=== PATIENT | male | born 1965 | race Caucasian/White ===

== ENCOUNTER 2017-01-03 13:55 | Emergency (ER) | payer OTHER ==
[2017-01-03] MEDS ORDERED: Ketorolac Tromethamine 30 MG/ML VIAL ONE (16:24)
[2017-01-03] MEDS ORDERED: methylPREDNISolone Sod Succ/PF 125 MG/2 ML VIAL ONE ×2 (16:24→16:28)
[2017-01-03] MEDS ORDERED: diphenhydrAMINE HCl 50 MG/ML 1 ML VIAL ONE (16:24)
[2017-01-03] MEDS ORDERED: Metoclopramide HCl 10 MG/2 ML VIAL ONE (16:24)
[2017-01-03] MEDS ORDERED: Water For Inject, Bacteriostat 30 ML ONE (16:29)
--- NOTE | 2017-01-03 19:08 | CT ---
CT BRAIN WITHOUT CONTRAST 01/03/17 HISTORY: Headache. FINDINGS: Comparison is made with exam of 08/27/15. No evidence of acute infarct, hemorrhage, midline shift or abnormal extra-axial fluid collections ar e seen. The ventricular size is appropriate and the basilar cisterns patent. The bony calvarium is i ntact. The visualized paranasal sinuses and mastoid air cells are well aerated. IMPRESSION: No CT evidence of acute intracranial process. POS: [facility]
[2017-01-03] MEDS ORDERED: Meclizine HCl 25 MG TAB ONE (19:34)
== END 2017-01-03 20:28 | disposition home or self-care (01) ==
LOC: ERS 13:55
DX: G43.909 Migraine, unspecified, not intractable, without status migrainosus (principal); I10 Essential (primary) hypertension; F43.10 Post-traumatic stress disorder, unspecified; F17.210 Nicotine dependence, cigarettes, uncomplicated; E03.9 Hypothyroidism, unspecified
CPT/HCPCS: 70450; 96361; 96365; 96375; 96376; J1200; J1885; J2270; J2765; J2930

== ENCOUNTER 2017-04-03 00:11 | Emergency (ER) | payer OTHER ==
[2017-04-03] MEDS ORDERED: Acetaminophen 500 MG TAB ONE (01:06)
[2017-04-03] MEDS ORDERED: Morphine 4 MG/ML VIAL ONE ×2 (01:27→02:23)
[2017-04-03 01:57] LABS: #Basophils 0.1 thou/uL (0.0-0.2); #Eosinphils 0.3 thou/uL (0.0-0.7); #Lymphocytes 2.7 thou/uL (1.20-3.40); #Neutrophils 4.8 thou/uL (1.40-6.50); %Lymphocytes 30.5 % (21.0-51.0); %Monocytes 11.5 % (0.0-10.0); %Neutrophils 54.1 % (42.0-75.0); Mean Corpuscular HGB CONC 33.7 g/dL (32.0-36.0); Mean Corpuscular Hemoglobin 31.7 pg (27.0-31.0); Mean Corpuscular Volume 94.1 fl (80.0-94.0); Mean Platelet Volume 6.9 fL (7.4-10.4); Platelet Count 291 thou/uL (130-400); RBC Distribution Width 11.7 % (11.5-14.5); Red Blood Cell (RBC) Count 5.06 mill/uL (4.70-6.10); White Blood Cell (WBC) Count 8.8 thou/uL (4.8-10.8)
[2017-04-03 02:17] LABS: ALT (SGPT) 28 U/L (8-55); AST (SGOT) 28 U/L (5-34); Albumin 4.6 g/dL (3.5-5.0); Alkaline Phosphatase 49 U/L (40-150); Anion Gap 15 mmol/L (10-20); BUN (Urea Nitrogen) 21 mg/dL (8.4-25.7); Bilirubin, Total 0.5 mg/dL (0.2-1.2); Calc. Creatinine Clearance 0 mL/min (70-130); Calcium 10.7 mg/dL (7.8-10.44); Carbon Dioxide 22 mmol/L (22-29); Chloride 104 mmol/L (98-107); Estimated GFR-MDRD 59; Globulin 2.9 g/dL (2.4-3.5); Glucose 88 mg/dL (70-105); Protein, Total 7.5 g/dL (6.0-8.3); Sodium 137 mmol/L (136-145)
[2017-04-03 02:21] LABS: Troponin I 0.012 ng/mL (< 0.028)
--- NOTE | 2017-04-03 08:06 | RAD ---
PORTABLE CHEST 1 VIEW: DATE: 04/03/17. TIME: 1:53 a.m. HISTORY: Cough, fever, chills, vomiting, diarrhea. FINDINGS: Comparison is made with the exam of 08/27/15. The heart size is normal. The lungs are expanded without focal areas of consolidation, pneumothorax, or pleural effusions. IMPRESSION: No radiographic evidence of acute cardiopulmonary process. POS: [facility]
== END 2017-04-03 03:07 | disposition home or self-care (01) ==
LOC: ERS 00:11
DX: J18.9 Pneumonia, unspecified organism (principal); E03.9 Hypothyroidism, unspecified; I10 Essential (primary) hypertension; F43.10 Post-traumatic stress disorder, unspecified; F17.210 Nicotine dependence, cigarettes, uncomplicated; Z71.6 Tobacco abuse counseling; Z79.899 Other long term (current) drug therapy
CPT/HCPCS: 36415; 71045; 80053; 82553; 84484; 85025; 93005; 96361; 96374; 96376; 99406; J2270

== ENCOUNTER 2017-04-04 17:03 | Emergency (ER) | payer OTHER ==
--- NOTE | 2017-04-04 17:41 | RAD ---
CHEST ONE VIEW 04/04/17 HISTORY: Dyspnea. COMPARISON: Chest one view 04/03/17. FINDINGS: Lungs are clear. No pneumothorax or effusion. The cardiac silhouette and mediastinal contours are wit hin normal limits. IMPRESSION: No acute intrathoracic abnormality. POS: [facility]
[2017-04-04 18:22] LABS: #Basophils 0.1 thou/uL (0.0-0.2); #Eosinphils 0.2 thou/uL (0.0-0.7); #Lymphocytes 2.2 thou/uL (1.20-3.40); #Monocytes 0.5 thou/uL (0.11-0.59); #Neutrophils 3.9 thou/uL (1.40-6.50); %Basophils 1.1 % (0.0-1.0); %Eosinophils 2.9 % (0.0-10.0); %Monocytes 7.1 % (0.0-10.0); Hemoglobin 16.5 g/dL (14.0-18.0); Mean Corpuscular HGB CONC 34.4 g/dL (32.0-36.0); Mean Corpuscular Hemoglobin 32.2 pg (27.0-31.0); Mean Corpuscular Volume 93.6 fl (80.0-94.0); Platelet Count 285 thou/uL (130-400); RBC Distribution Width 11.7 % (11.5-14.5); Red Blood Cell (RBC) Count 5.12 mill/uL (4.70-6.10); White Blood Cell (WBC) Count 6.9 thou/uL (4.8-10.8)
[2017-04-04 18:49] LABS: ALT (SGPT) 26 U/L (8-55); AST (SGOT) 24 U/L (5-34); Albumin 4.5 g/dL (3.5-5.0); Alkaline Phosphatase 48 U/L (40-150); Anion Gap 13 mmol/L (10-20); BUN (Urea Nitrogen) 18 mg/dL (8.4-25.7); Bilirubin, Total 0.5 mg/dL (0.2-1.2); Calc. Creatinine Clearance 0 mL/min (70-130); Calcium 9.5 mg/dL (7.8-10.44); Carbon Dioxide 21 mmol/L (22-29); Chloride 103 mmol/L (98-107); Estimated GFR-MDRD 55; Globulin 3.2 g/dL (2.4-3.5); Glucose 99 mg/dL (70-105); Protein, Total 7.7 g/dL (6.0-8.3); Sodium 133 mmol/L (136-145)
[2017-04-04] MEDS ORDERED: Ketorolac Tromethamine 60 MG/2 ML VIAL ONE (20:46)
[2017-04-04] MEDS ORDERED: Dexamethasone 10 MG/ML VIAL ONE (20:46)
[2017-04-04] MEDS ORDERED: Albuterol Sulfate 2.5 mg/3 ml Neb ONE (20:50)
[2017-04-04] MEDS ORDERED: Albuterol Sulfate 2.5 mg/0.5 ml Neb ONE (20:50)
== END 2017-04-04 22:33 | disposition home or self-care (01) ==
LOC: ERS 17:03
DX: J40 Bronchitis, not specified as acute or chronic (principal); B34.9 Viral infection, unspecified; E03.9 Hypothyroidism, unspecified; I10 Essential (primary) hypertension; F43.10 Post-traumatic stress disorder, unspecified; F17.200 Nicotine dependence, unspecified, uncomplicated; Z79.899 Other long term (current) drug therapy; Z79.1 Long term (current) use of non-steroidal anti-inflammatories (NSAID)
CPT/HCPCS: 36415; 71045; 80053; 85025; 94640; 96372; 99406; J1100; J1885; J7611; J7620

== ENCOUNTER 2017-04-23 15:59 | Inpatient (IN) | payer OTHER, SELFPAY ==
[~2017-04-23 15:59] MED LIST: ISOVUE-370 76%-LOCM 1 ML ONE
[2017-04-23 16:22] LABS: #Basophils 0.1 thou/uL (0.0-0.2); #Eosinphils 0.3 thou/uL (0.0-0.7); #Lymphocytes 2.3 thou/uL (1.20-3.40); #Monocytes 0.7 thou/uL (0.11-0.59); #Neutrophils 5.4 thou/uL (1.40-6.50); %Basophils 0.7 % (0.0-1.0); %Lymphocytes 26.1 % (21.0-51.0); %Monocytes 7.7 % (0.0-10.0); %Neutrophils 62.5 % (42.0-75.0); Hemoglobin 15.3 g/dL (14.0-18.0); Mean Corpuscular HGB CONC 35.2 g/dL (32.0-36.0); Mean Corpuscular Hemoglobin 32.6 pg (27.0-31.0); Mean Corpuscular Volume 92.5 fl (80.0-94.0); Mean Platelet Volume 7.3 fL (7.4-10.4); Platelet Count 269 thou/uL (130-400); RBC Distribution Width 11.7 % (11.5-14.5); Red Blood Cell (RBC) Count 4.71 mill/uL (4.70-6.10); White Blood Cell (WBC) Count 8.6 thou/uL (4.8-10.8)
--- NOTE | 2017-04-23 16:23 | RAD ---
CHEST ONE VIEW 04/23/17 HISTORY: Dyspnea. Chest pain. COMPARISON: 04/04/17. FINDINGS: The cardiac silhouette and pulmonary vasculature are unremarkable. Mediastinum is midline. There is n o confluent air space consolidation or evidence of pneumothorax. Writing pen over the right upper [address] is presumed to be extrinsic artifact. Small dystrophic calcification/overlying artifact projects o riki the left axilla. IMPRESSION: No active cardiopulmonary abnormalities are demonstrated. POS: [facility]
[2017-04-23 16:58] LABS: ALT (SGPT) 28 U/L (8-55); AST (SGOT) 27 U/L (5-34); Albumin 4.7 g/dL (3.5-5.0); Alkaline Phosphatase 45 U/L (40-150); Anion Gap 14 mmol/L (10-20); BUN (Urea Nitrogen) 18 mg/dL (8.4-25.7); Bilirubin, Total 0.5 mg/dL (0.2-1.2); CK (CPK) 484 U/L (30-200); Calc. Creatinine Clearance 0 mL/min (70-130); Calcium 9.5 mg/dL (7.8-10.44); Carbon Dioxide 22 mmol/L (22-29); Chloride 103 mmol/L (98-107); Estimated GFR-MDRD 58; Globulin 2.9 g/dL (2.4-3.5); Glucose 88 mg/dL (70-105); Lipase 45 U/L (8-78); Potassium 3.9 mmol/L (3.5-5.1); Protein, Total 7.6 g/dL (6.0-8.3); Sodium 135 mmol/L (136-145)
[2017-04-23 17:16] LABS: CKMB 13.9 ng/mL (0-6.6); Troponin I 0.655 ng/mL (< 0.028)
[2017-04-23] MEDS ORDERED: Morphine 4 MG/ML Carpuject ONE ×3 (17:32→20:27)
[2017-04-23] MEDS ORDERED: Nitroglycerin 2% Ointment 1 INCH/1 GM Packet ONE (17:33)
[2017-04-23] MEDS ORDERED: Ondansetron HCl/PF 4 MG/2 ML Vial ONE (17:33)
[2017-04-23] MEDS ORDERED: Nitroglycerin 0.4 MG TAB (25 Tab Bottle) SL PRN (19:38)
[2017-04-23] MEDS ORDERED: Acetaminophen 325 MG TAB PO PRN (19:38)
--- NOTE | 2017-04-23 20:13 | HP ---
PRIMARY CARE PHYSICIAN: Dr. Geno Paz. CHIEF COMPLAINT: Chest pain. HISTORY OF PRESENT ILLNESS: Mr. Ritter is a pleasant 52-year-old gentleman who was seen at [facility] on 04/23/2017. He reports that he was working around 1:00 p.m. when he developed retrosternal chest pain. It radiat ed initially to his right, subsequently to his left, then to his right again. He describes it as sha rp. He reports feeling pain between his shoulder blades. He describes it as 10/10 at its worst, acc ompanied by shortness of breath, not accompanied by diaphoresis, not accompanied by nausea. He repor ts that it lasted several hours. He received some medications with improvement of the pain, now it i s 7/10. He denies any fevers or chills. He denies any abdominal pain. He denies any recent travel. REVIEW OF SYSTEMS: The following complete review of systems was negative, unless otherwise mentioned in the HPI or below: Constitutional: Weight loss or gain, ability to conduct usual activities. Skin: Rash, itching. Eyes: Double vision, pain. ENT/Mouth: Nose bleeding, neck stiffness, pain, tenderness. Cardiovascular: Palpitations, dyspnea on exertion, orthopnea. Respiratory: Shortness of breath, wheezing, cough, hemoptysis, fever or night sweats. Gastrointestinal: Poor appetite, abdominal pain, heartburn, nausea, vomiting, constipation, or diarrhea. Genitourinary: Urgency, frequency, dysuria, nocturia. Musculoskeletal: Pain, swelling. Neurologic/Psychiatric: Anxiety, depression. Allergy/Immunologic: Skin rash, bleeding tendency. PAST MEDICAL HISTORY: Significant for hypothyroidism, hepatitis C, hypertension, and chronic back pa in. PAST SURGICAL HISTORY: Significant for appendectomy, thyroidectomy, facial reconstruction. PSYCHIATRIC HISTORY: Significant for post-traumatic stress disorder. SOCIAL HISTORY: The patient denies recreational drug use. He uses tobacco, a pack of cigarettes las ting a week. He drinks alcohol every week. FAMILY HISTORY: Significant for heart disease in his father. ALLERGIES: No known drug allergies. CURRENT MEDICATIONS: Include hydrochlorothiazide 12.5 mg daily; lisinopril 40 mg daily; Synthroid 17 5 mcg daily; ibuprofen p.r.n.; azithromycin, it is unclear how long he is taking or if he still takin g it; Zoloft 100 mg daily; Ventolin p.r.n.; Tessalon Perles 100 mg 3 times a day; Ultram p.r.n. PHYSICAL EXAMINATION: GENERAL: Mr. Ritter is awake and alert, not in acute distress. VITAL SIGNS: He is afebrile. Blood pressure is 126/75, pulse is 70, he is breathing at rate of 18, and saturating 97% on room air. EYES: No scleral icterus. No conjunctival pallor. ENT: Moist mucosal membranes. No oropharyngeal erythema or exudates. NECK: Supple, nontender, normal range of movement, trachea is midline. RESPIRATORY: Accessory muscles of breathing are not active. Chest wall movements are symmetric bila terally. LUNGS: Clear to auscultation without wheeze, rhonchi or crepitations. CARDIOVASCULAR: S1 and S2 are heard, regular. LUNGS: Peripheral pulses palpable. No carotid bruits. No pericardial rub. ABDOMEN: Soft, distended, nontender, bowel sounds heard, no hepatomegaly, no splenomegaly. NEUROLOGIC: Cranial nerves II-XII are intact. Deep tendon reflexes are 2+. MUSCULOSKELETAL: Power is 5/5 in all 4 extremities. SKIN: No rashes or subcutaneous nodules. LYMPHATIC: No cervical lymphadenopathy. PSYCHIATRIC: Normal mood, normal affect, patient is oriented to person, place, and time. LABORATORY DATA: Mr. Ritter's labs and investigations were reviewed. I reviewed his electrocardiog art, which shows sinus bradycardia, no ST changes to suggest an acute coronary syndrome. I also revi ewed his chest x-ray, which does not show any pulmonary infiltrates. Laboratory investigation show a n unremarkable CBC, hyponatremia with sodium of 135, elevated CK of 484, normal liver profile, normal creatinine, normal lipase and troponin I is elevated at 0.655. ASSESSMENT AND PLAN: Mr. Ritter is a pleasant 52-year-old gentleman who was seen at [facility] on 04/23/2017. His problem list includes: 1. Chest pain: His presentation is concerning for non-ST elevation myocardial infarction. However, he does describe very sharp pain that is retrosternal and radiating to the back. We will obtain a C T angiogram to rule out aortic dissection. Once he is cleared from that point of view, we will start him on Lovenox and monitor on telemetry. Cardiology Service is also being contacted by the emergenc y room physician. 2. Hyponatremia: Mild, we will recheck. 3. Hypertension: Monitor vital signs, titrate antihypertensives as needed. 4. Tobacco abuse: The patient has been counseled regarding tobacco cessation. We will start him on nicotine replacement therapy. 5. Hypothyroidism: Continue Synthroid. 6. Posttraumatic stress disorder. Continue home medications. Many thanks for allowing me to participate in your patient's care. Please feel free to contact me wi th any questions or concerns. LEVEL OF RISK: High. LEVEL OF COMPLEXITY: High.
[2017-04-23 20:16] LABS: CKMB 33.9 ng/mL (0-6.6); Troponin I 2.415 ng/mL (< 0.028)
[2017-04-23] MEDS ORDERED: Enoxaparin Sodium 30 MG/0.3 ML SYRINGE ONE (20:55)
[2017-04-23] MEDS ORDERED: Enoxaparin Sodium 80 MG/0.8 ML SYRINGE ONE (20:55)
--- NOTE | 2017-04-23 21:53 | CT ---
CTA CHEST CTA ABDOMEN AND PELVIS 3D VOLUME RENDERING PERFORMED 04/23/17 CLINICAL HISTORY: Pain, clinical concern for dissection. Chest pain. FINDINGS: The thoracoabdominal aorta is nonaneurysmal. There is scattered calcified and noncalcified plaque. No intimal flap present to confirm aortic dissection. The caliber of the pulmonary arteries is appropri ate. No acute pathology of the solid abdominal organs identified. Mild volume loss is seen within the subpleura of each lung. No effusion or pneumothorax. Imaged osseous structures are nonacute in appea danette. Reference is made to CT aortogram 08/16/15. IMPRESSION: No acute aortic dissection. POS: [facility]
[2017-04-23] MEDS ORDERED: Morphine 2 MG/ML SYRINGE ONE (23:07)
[2017-04-23 23:11] LABS: Troponin I 5.023 ng/mL (< 0.028)
[2017-04-24] MEDS: Nicotine 14 MG PATCH TD SCH ×2 (00:08→20:57)
[2017-04-24] MEDS: Morphine 10 MG/ML CARPUJECT SLOW IVP PRN ×3 (00:30→18:43)
[2017-04-24 01:09] VITALS: BMI 36.6
[2017-04-24 02:12] LABS: Troponin I 7.186 ng/mL (< 0.028)
[2017-04-24] MEDS ORDERED: Sodium Chloride 0.9% 500 ML IVPB SCH (04:00)
[2017-04-24] MEDS: Nitroglycerin 2% Ointment 1 INCH/1 GM Packet TOP SCH ×3 (05:47→22:05)
[2017-04-24 06:54] LABS: Anion Gap 10 mmol/L (10-20); BUN (Urea Nitrogen) 16 mg/dL (8.4-25.7); Calc. Creatinine Clearance 118 mL/min (70-130); Calcium 8.7 mg/dL (7.8-10.44); Carbon Dioxide 26 mmol/L (22-29); Chloride 105 mmol/L (98-107); Estimated GFR-MDRD 67; Glucose 86 mg/dL (70-105); Potassium 3.8 mmol/L (3.5-5.1); Sodium 137 mmol/L (136-145)
[2017-04-24 07:43] LABS: #Eosinphils 0.3 thou/uL (0.0-0.7); #Lymphocytes 3.2 thou/uL (1.20-3.40); #Monocytes 0.7 thou/uL (0.11-0.59); #Neutrophils 4.5 thou/uL (1.40-6.50); %Basophils 0.3 % (0.0-1.0); %Eosinophils 3.5 % (0.0-10.0); %Lymphocytes 36.8 % (21.0-51.0); %Monocytes 8.1 % (0.0-10.0); %Neutrophils 51.4 % (42.0-75.0); Hemoglobin 14.7 g/dL (14.0-18.0); Mean Corpuscular HGB CONC 33.9 g/dL (32.0-36.0); Mean Corpuscular Hemoglobin 31.7 pg (27.0-31.0); Mean Corpuscular Volume 93.4 fl (80.0-94.0); Mean Platelet Volume 7.5 fL (7.4-10.4); Platelet Count 234 thou/uL (130-400); RBC Distribution Width 11.7 % (11.5-14.5); Red Blood Cell (RBC) Count 4.65 mill/uL (4.70-6.10); White Blood Cell (WBC) Count 8.7 thou/uL (4.8-10.8)
[2017-04-24] MEDS ORDERED: Nitroglycerin 100MG/250ML BOT 250 ML ONE (08:19)
[2017-04-24] MEDS ORDERED: Adenosine 6 MG/2 ML VIAL ONE (08:19)
[2017-04-24] MEDS ORDERED: Verapamil 5 MG/2 ML VIAL ONE (08:19)
[2017-04-24] MEDS ORDERED: TICAGRELOR 90 MG TABLET ONE (08:19)
[2017-04-24] MEDS ORDERED: Heparin 10,000 UNITS/1 ML VIAL ONE (08:19)
--- NOTE | 2017-04-24 08:21 | CON ---
DATE OF CONSULTATION: 04/24/2017 REASON FOR CONSULTATION: Elevated troponin and chest pain. REFERRING PROVIDER: Dr. Lamb. HISTORY OF PRESENT ILLNESS: Mr. Ritter is a very pleasant 52-year-old gentleman with no previous hi story of underlying coronary disease. He states he began having chest pain yesterday at 1:00. The p ain has been intermittent. He is currently having pain, although not as severe. His CK-MB and tropo nins continue to increase. PAST MEDICAL HISTORY: Hypothyroidism, hepatitis C, hypertension, and chronic low back pain. PAST SURGICAL HISTORY: Appendectomy, thyroidectomy, and facial reconstruction. SOCIAL HISTORY: No current tobacco or alcohol use. ALLERGIES: None. MEDICATIONS: Include hydrochlorothiazide, lisinopril, Tessalon Perles, Ventolin, Zoloft, ibuprofen, Synthroid, and Ultram. REVIEW OF SYSTEMS: Ten-point review of systems is reviewed and as above, otherwise negative. PHYSICAL EXAMINATION: GENERAL: Patient is a pleasant male, who is in no acute distress. The patient appears his stated ag e. VITAL SIGNS: Blood pressure 103/50, pulse 54, and temperature 98. NEUROLOGIC: The patient is alert and oriented times 3 with no focal neurologic deficits. HEENT: Sclerae without icterus. Mouth has moist mucous membranes with normal pallor. NECK: No JVD. Carotid upstroke brisk. No bruits bilaterally. LUNGS: Clear to auscultation with unlabored respirations. BACK: No scoliosis or kyphosis. CARDIAC: Regular rate and rhythm with normal S1 and S2. No S3 or S4 noted. No significant rubs, murmurs, thrills, or gallops noted throughout the precordium. PMI is not displa shakeel. There is no parasternal heave. ABDOMEN: Soft, nontender, nondistended. No peritoneal signs present. No hepatosplenomegaly. No abnormal striae. EXTREMITIES: 2+ femoral and 2+ dorsalis pedis pulses. No cyanosis, clubbing, or edema. SKIN: No gross abnormalities. EKG normal sinus rhythm, cannot completely excluded inferior infarct, age unknown. PERTINENT LABORATORY DATA: Hemoglobin 14.7, peak troponin of 7.18 with a CK-MB of 33. IMPRESSION: 1. Unstable angina. 2. Hypertension. RECOMMENDATIONS: At this point, given continued pain. An elevated CK-MB and troponin, I would recom mend coronary angiography with possible PCI. I discussed the procedure in full detail with Mr. Cordova on. The risks include but are not limited to the following: I discussed the procedure in full detai l with the patient. The risks of the procedure were also discussed. The risks of the procedure incl ude but are not limited to the following: , stroke, SC, need for emergency surgery, loss of savage b, bleeding, and infection, as well as a reaction to the dye causing kidney failure and needing long- term dialysis. I also discussed the risks of PCI to include all of the above including coronary diss ection and perforation in addition to acute stent thrombosis and restenosis. All questions about the procedure were answered. Given the above, the patient agreed to proceed with coronary angiography a nd possible PCI. All questions were answered. Given the above, the patient agreed to proceed with t he above procedure. I also discussed drug-coated versus nondrug coated stent placement. There are n o contraindications and will proceed if needed. Further recommendations pending the above.
[2017-04-24] MEDS ORDERED: Aggrastat 12.5 MG/250 ML 250 ML ONE (08:38)
[2017-04-24] MEDS ORDERED: traMADol HCl 50 MG TAB PO PRN (08:45)
[2017-04-24] MEDS ORDERED: Mag-Al 1200 mg/1200 mg/30 ML UDCUP PO PRN (08:45)
[2017-04-24] MEDS ORDERED: Milk Of Magnesia 30 ML UDCUP PO PRN (08:45)
[2017-04-24] MEDS ORDERED: Aggrastat 12.5 MG/250 ML 250 ML IVPB SCH (08:45)
[2017-04-24] MEDS ORDERED: Morphine 2 MG/ML SYRINGE ONE ×4 (10:32→16:26)
[2017-04-24] MEDS ORDERED: Iopamidol 370 76% 50 ML VIAL FS ONE (11:47)
--- NOTE | 2017-04-24 16:08 | PDOC.PN ---
- Subjective Encounter Start Date: 04/24/17 Encounter Start Time: 16:07 Subjective: seen in PACU.doing well post cath -: no chest pain.reports that hi sbreathing has improved significantly - Objective MAR Reviewed: Yes Vital Signs & Weight: Vital Signs (12 hours) Temp Pulse Resp BP Pulse Ox 04/24/17 07:45 98.0 F 55 L 16 96/62 100 04/24/17 04:28 103/50 L 04/24/17 04:23 98.0 F 54 L 19 103/50 L 99 Result Diagrams: 04/24/17 05:23 04/24/17 05:23 Additional Labs: Laboratory Tests 04/23/17 04/23/17 04/23/17 16:06 16:06 19:29 Creatine Kinase 484 H Troponin I 0.655 H* 2.415 H* 04/23/17 04/24/17 22:37 01:22 Creatine Kinase Troponin I 5.023 H* 7.186 H* Radiology Reviewed by me: Yes Phys Exam - Physical Examination Constitutional: NAD HEENT: PERRLA, moist MMs, sclera anicteric, oral pharynx no lesions Neck: no nodes, no JVD, supple, full ROM Respiratory: no wheezing, no rales, no rhonchi, clear to auscultation bilateral Cardiovascular: RRR, no significant murmur Gastrointestinal: soft, non-tender, no distention, positive bowel sounds Musculoskeletal: no edema, pulses present Neurological: non-focal, normal sensation, moves all 4 limbs Psychiatric: normal affect, A&O x 3 Skin: no rash Dx/Plan (1) NSTEMI (non-ST elevated myocardial infarction) Code(s): I21.4 - NON-ST ELEVATION (NSTEMI) MYOCARDIAL INFARCTION Status: Acute (2) Morbid obesity Code(s): E66.01 - MORBID (SEVERE) OBESITY DUE TO EXCESS CALORIES Status: Chronic (3) Chronic low back pain Code(s): M54.5 - LOW BACK PAIN; G89.29 - OTHER CHRONIC PAIN Status: Chronic Qualifiers: Back pain laterality: bilateral (4) GERD (gastroesophageal reflux disease) Code(s): K21.9 - GASTRO-ESOPHAGEAL REFLUX DISEASE WITHOUT ESOPHAGITIS Status: Chronic Comment: Continue Protonix 40mg po daily (5) Hepatitis C virus Code(s): B19.20 - UNSPECIFIED VIRAL HEPATITIS C WITHOUT HEPATIC COMA Status: Chronic Qualifiers: Viral hepatitis chronicity: carrier Qualified Code(s): B18.2 - Chronic viral hepatitis C Comment: s/p 12 weeks therapy for Hep C with apparent resolution (6) Hypertension Code(s): I10 - ESSENTIAL (PRIMARY) HYPERTENSION Status: Chronic Qualifiers: Hypertension type: essential hypertension Qualified Code(s): I10 - Essential (primary) hypertension Comment: Labile, titrate home BP regimen, likely labile secondary to pain (7) Hypothyroidism Code(s): E03.9 - HYPOTHYROIDISM, UNSPECIFIED Status: Chronic Comment: Continue Levothyroxine 175 mcg daily - Plan plan discussed w/ family, out of bed/ambulate, DVT proph w/SCDs S/P RCA LUIS.cont ASA,plavix and statin -: restart FER-I,BB if Bp permits.cardiology following -: hemodynamically stable. -: am labs -: follow ECHO results. tobacco cessation counselling * . Review of Systems - Review of Systems Constitutional: negative: fever, chills, sweats, weakness, malaise, other Respiratory: negative: Cough, Dry, Shortness of Breath, Hemoptysis, SOB with Excertion, Pleuritic Pain, Sputum, Wheezing Cardiovascular: negative: chest pain, palpitations, orthopnea, paroxysmal nocturnal dyspnea, edema, light headedness, other Gastrointestinal: negative: Nausea, Vomiting, Abdominal Pain, Diarrhea, Constipation, Melena, Hematochezia, Other Genitourinary: negative: Dysuria, Frequency, Incontinence, Hematuria, Retention , Other Musculoskeletal: negative: Neck Pain, Shoulder Pain, Arm Pain, Back Pain, Hand Pain, Leg Pain, Foot Pain, Other Neurological: negative: Weakness, Numbness, Incoordination, Change in Speech, Confusion, Seizures, Other - Medications/Allergies Allergies/Adverse Reactions: Allergies Allergy/AdvReac Type Severity Reaction Status Date / Time No Known Drug Allergies Allergy Verified 08/28/15 03:24 Medications: Current Medications Acetaminophen (Tylenol) 650 mg PO Q4H PRN PRN Reason: Headache/Fever or Pain Acetaminophen/Codeine Phosphate (Tylenol #3) 1 tab PO Q4H PRN PRN Reason: Mild Pain (1-3) Al Hydroxide/Mg Hydroxide (Maalox) 30 ml PO Q3H PRN PRN Reason: Indigestion Aspirin (Aspirin) 325 mg PO DAILY [facility] Atorvastatin Calcium (Lipitor) 40 mg PO HS [facility] Clopidogrel Bisulfate (Plavix) 75 mg PO DAILY [facility] Tirofiban/Sodium Chloride (Aggrastat 12.5 Mg/250 Ml) 250 mls @ 0 mls/hr IVPB INF [facility]; As Directed PRN Reason: Protocol Sodium Chloride (Normal Saline 0.9%) 1,000 mls @ 100 mls/hr IV .Q10H [facility] Stop: 04/27/17 16:44 Magnesium Hydroxide (Milk Of Magnesium) 30 ml PO Q12H PRN PRN Reason: Constipation Morphine Sulfate (Morphine) 2 mg SLOW IVP Q5MIN PRN PRN Reason: Chest Pain Last Admin: 04/24/17 01:02 Dose: 2 mg Nicotine (Nicoderm Patch) 14 mg TD Q24HR [facility] Last Admin: 04/24/17 00:08 Dose: Not Given Nitroglycerin (Nitrostat) 0.4 mg SL Q5MIN PRN PRN Reason: Chest Pain Last Admin: 04/24/17 02:58 Dose: 0.4 mg Nitroglycerin (Nitro-Bid 2% Ointment) 0.5 inch TOP Q8HR [facility] Last Admin: 04/24/17 05:47 Dose: 0.5 inch Sodium Chloride (Flush - Normal Saline) 10 ml IVF Q12HR [facility] Sodium Chloride (Flush - Normal Saline) 10 ml IVF PRN PRN PRN Reason: Saline Flush Tramadol HCl (Ultram) 50 mg PO Q6H PRN PRN Reason: Pain
[2017-04-24] MEDS: Clopidogrel Bisulfate 75 MG TAB PO SCH (17:42)
[2017-04-24] MEDS: Aspirin 325 MG TAB PO SCH (17:42)
[2017-04-24] MEDS: Sodium Chloride 0.9% 1,000 ML IV SCH ×2 (18:59→19:00)
[2017-04-24] MEDS: Acetaminophen/Codeine 30-300mg Tablet PO PRN (20:18)
[2017-04-24] MEDS: Atorvastatin Calcium 40 MG TAB PO SCH (20:56)
[2017-04-24] MEDS: traZODone HCl 50 MG TAB PO SCH (20:56)
[2017-04-25 05:27] LABS: #Eosinphils 0.2 thou/uL (0.0-0.7); #Lymphocytes 1.4 thou/uL (1.20-3.40); #Monocytes 0.6 thou/uL (0.11-0.59); #Neutrophils 4.5 thou/uL (1.40-6.50); %Basophils 0.7 % (0.0-1.0); %Eosinophils 3.2 % (0.0-10.0); %Lymphocytes 20.3 % (21.0-51.0); %Monocytes 8.6 % (0.0-10.0); %Neutrophils 67.2 % (42.0-75.0); Hemoglobin 13.6 g/dL (14.0-18.0); Mean Corpuscular HGB CONC 34.6 g/dL (32.0-36.0); Mean Corpuscular Hemoglobin 32.6 pg (27.0-31.0); Mean Corpuscular Volume 94.3 fl (80.0-94.0); Mean Platelet Volume 7.3 fL (7.4-10.4); Platelet Count 200 thou/uL (130-400); RBC Distribution Width 11.6 % (11.5-14.5); Red Blood Cell (RBC) Count 4.17 mill/uL (4.70-6.10); White Blood Cell (WBC) Count 6.7 thou/uL (4.8-10.8)
[2017-04-25 05:42] LABS: ALT (SGPT) 26 U/L (8-55); AST (SGOT) 41 U/L (5-34); Albumin 3.9 g/dL (3.5-5.0); Alkaline Phosphatase 37 U/L (40-150); Anion Gap 10 mmol/L (10-20); BUN (Urea Nitrogen) 14 mg/dL (8.4-25.7); Bilirubin, Total 0.7 mg/dL (0.2-1.2); Calc. Creatinine Clearance 119 mL/min (70-130); Calcium 8.2 mg/dL (7.8-10.44); Carbon Dioxide 25 mmol/L (22-29); Chloride 109 mmol/L (98-107); Estimated GFR-MDRD 67; Globulin 2.3 g/dL (2.4-3.5); Glucose 103 mg/dL (70-105); Potassium 4.1 mmol/L (3.5-5.1); Protein, Total 6.2 g/dL (6.0-8.3); Sodium 140 mmol/L (136-145)
[2017-04-25] MEDS: Sodium Chloride 0.9% 1,000 ML IV SCH ×2 (06:02→16:40)
[2017-04-25] MEDS: Levothyroxine 175 MCG TAB PO SCH (06:03)
[2017-04-25] MEDS: Nitroglycerin 2% Ointment 1 INCH/1 GM Packet TOP SCH ×3 (06:03→20:34)
[2017-04-25] MEDS: Aspirin 325 MG TAB PO SCH (09:25)
[2017-04-25] MEDS: Clopidogrel Bisulfate 75 MG TAB PO SCH (09:27)
[2017-04-25] MEDS: Acetaminophen/Codeine 30-300mg Tablet PO PRN ×2 (09:38→21:43)
--- NOTE | 2017-04-25 14:21 | CON ---
DATE OF SERVICE: 04/25/2017 SUBJECTIVE: Mr. Ritter is doing well. No chest pain or pressure noted. OBJECTIVE: VITAL SIGNS: Blood pressure 129/79, pulse 60, temperature 97.5. LUNGS: Clear to auscultation. HEART: Regular rate and rhythm. ABDOMEN: Soft, nontender, and nondistended. EXTREMITIES: No edema. IMPRESSION: Unstable angina. RECOMMENDATIONS: Continue Plavix and aspirin. Again, reemphasis the importance. His blood pressure has been in the 120s to 130s. We will hold his FER inhibitor therapy for now and add Norvasc 5 mg q .a.m. We will also add low dose Toprol XL 25 at bedtime. We will transfer to telemetry monitoring. Plan to discharge in a.m.
--- NOTE | 2017-04-25 15:13 | PDOC.PN ---
- Subjective Encounter Start Date: 04/25/17 Encounter Start Time: 15:11 Subjective: feels good. no CP/SOB.no new complaints - Objective MAR Reviewed: Yes Vital Signs & Weight: Vital Signs (12 hours) Temp Pulse Pulse Pulse Resp BP BP 04/25/17 12:00 97.5 F L 60 16 04/25/17 10:12 63 57 L 153/76 H 130/75 04/25/17 08:00 97.0 F L 67 19 04/25/17 07:18 97.0 F L 67 19 04/25/17 04:00 97.8 F 68 16 BP BP Pulse Ox Pulse Ox Pulse Ox 04/25/17 12:00 129/79 97 04/25/17 10:12 99 99 04/25/17 08:00 97 04/25/17 07:18 150/78 H 97 04/25/17 04:00 107/60 95 I&O: 04/24/17 04/25/17 04/26/17 06:59 06:59 06:59 Intake Total 2487 Output Total 400 Balance 2086 Result Diagrams: 04/25/17 04:42 04/25/17 04:42 Additional Labs: Accuchecks 04/25/17 10:34 POC Glucose 90 Phys Exam - Physical Examination Constitutional: NAD HEENT: PERRLA, moist MMs, sclera anicteric, TM's clear, oral pharynx no lesions Neck: no nodes, no JVD, supple, full ROM Respiratory: no wheezing, no rales, no rhonchi, clear to auscultation bilateral Cardiovascular: RRR, no significant murmur, no rub, gallop Gastrointestinal: soft, non-tender, no distention, positive bowel sounds Musculoskeletal: no edema, pulses present Neurological: non-focal, normal sensation, moves all 4 limbs Psychiatric: normal affect, A&O x 3 Skin: no rash Dx/Plan (1) NSTEMI (non-ST elevated myocardial infarction) Code(s): I21.4 - NON-ST ELEVATION (NSTEMI) MYOCARDIAL INFARCTION Status: Acute Comment: s/p RCA stenting (2) Morbid obesity Code(s): E66.01 - MORBID (SEVERE) OBESITY DUE TO EXCESS CALORIES Status: Chronic (3) Chronic low back pain Code(s): M54.5 - LOW BACK PAIN; G89.29 - OTHER CHRONIC PAIN Status: Chronic Qualifiers: Back pain laterality: bilateral (4) GERD (gastroesophageal reflux disease) Code(s): K21.9 - GASTRO-ESOPHAGEAL REFLUX DISEASE WITHOUT ESOPHAGITIS Status: Chronic Comment: Continue Protonix 40mg po daily (5) Hepatitis C virus Code(s): B19.20 - UNSPECIFIED VIRAL HEPATITIS C WITHOUT HEPATIC COMA Status: Chronic Qualifiers: Viral hepatitis chronicity: carrier Qualified Code(s): B18.2 - Chronic viral hepatitis C Comment: s/p 12 weeks therapy for Hep C with apparent resolution (6) Hypertension Code(s): I10 - ESSENTIAL (PRIMARY) HYPERTENSION Status: Chronic Qualifiers: Hypertension type: essential hypertension Qualified Code(s): I10 - Essential (primary) hypertension Comment: Labile, titrate home BP regimen, likely labile secondary to pain (7) Hypothyroidism Code(s): E03.9 - HYPOTHYROIDISM, UNSPECIFIED Status: Chronic Comment: Continue Levothyroxine 175 mcg daily - Plan PT/OT, out of bed/ambulate, DVT proph w/SCDs cont ASA,plavix,statin.restart lisinopril.Add BB if BP stable. -: cardiology following.HD stable. -: Consult marketing project coordinator. -: marie MADDOX in am if OK w cardiology * . Review of Systems - Review of Systems Constitutional: negative: fever, chills, sweats, weakness, malaise, other ENT: negative: Ear Pain, Ear Discharge, Nose Pain, Nose Discharge, Nose Congestion, Mouth Pain, Mouth Swelling, Throat Pain, Throat Swelling, Other Respiratory: negative: Cough, Dry, Shortness of Breath, Hemoptysis, SOB with Excertion, Pleuritic Pain, Sputum, Wheezing Cardiovascular: negative: chest pain, palpitations, orthopnea, paroxysmal nocturnal dyspnea, edema, light headedness, other Gastrointestinal: negative: Nausea, Vomiting, Abdominal Pain, Diarrhea, Constipation, Melena, Hematochezia, Other Genitourinary: negative: Dysuria, Frequency, Incontinence, Hematuria, Retention , Other Musculoskeletal: negative: Neck Pain, Shoulder Pain, Arm Pain, Back Pain, Hand Pain, Leg Pain, Foot Pain, Other Neurological: negative: Weakness, Numbness, Incoordination, Change in Speech, Confusion, Seizures, Other - Medications/Allergies Allergies/Adverse Reactions: Allergies Allergy/AdvReac Type Severity Reaction Status Date / Time No Known Drug Allergies Allergy Verified 08/28/15 03:24 Medications: Current Medications Acetaminophen (Tylenol) 650 mg PO Q4H PRN PRN Reason: Headache/Fever or Pain Acetaminophen/Codeine Phosphate (Tylenol #3) 1 tab PO Q4H PRN PRN Reason: Mild Pain (1-3) Last Admin: 04/25/17 09:38 Dose: 1 tab Al Hydroxide/Mg Hydroxide (Maalox) 30 ml PO Q3H PRN PRN Reason: Indigestion Aspirin (Aspirin Chewable) 81 mg PO DAILY [facility] Last Admin: 04/25/17 09:27 Dose: 81 mg Atorvastatin Calcium (Lipitor) 40 mg PO HS [facility] Last Admin: 04/24/17 20:56 Dose: 40 mg Clopidogrel Bisulfate (Plavix) 75 mg PO DAILY [facility] Last Admin: 04/25/17 09:27 Dose: 75 mg Sodium Chloride (Normal Saline 0.9%) 1,000 mls @ 100 mls/hr IV .Q10H [facility] Stop: 04/27/17 16:44 Last Admin: 04/25/17 06:02 Dose: 1,000 mls Levothyroxine Sodium (Synthroid) 175 mcg PO 0600 [facility] Last Admin: 04/25/17 06:03 Dose: 175 mcg Magnesium Hydroxide (Milk Of Magnesium) 30 ml PO Q12H PRN PRN Reason: Constipation Metoprolol Succinate (Toprol Xl) 25 mg PO DAILY [facility] Morphine Sulfate (Morphine) 2 mg SLOW IVP Q5MIN PRN PRN Reason: Chest Pain Last Admin: 04/24/17 18:43 Dose: 2 mg Nicotine (Nicoderm Patch) 14 mg TD Q24HR [facility] Last Admin: 04/24/17 20:57 Dose: Not Given Nitroglycerin (Nitrostat) 0.4 mg SL Q5MIN PRN PRN Reason: Chest Pain Last Admin: 04/24/17 02:58 Dose: 0.4 mg Nitroglycerin (Nitro-Bid 2% Ointment) 0.5 inch TOP Q8HR [facility] Last Admin: 04/25/17 06:03 Dose: 0.5 inch Sertraline HCl (Zoloft) 200 mg PO DAILY [facility] Last Admin: 04/25/17 09:27 Dose: 200 mg Sodium Chloride (Flush - Normal Saline) 10 ml IVF Q12HR [facility] Last Admin: 04/25/17 09:27 Dose: 10 ml Sodium Chloride (Flush - Normal Saline) 10 ml IVF PRN PRN PRN Reason: Saline Flush Tramadol HCl (Ultram) 50 mg PO Q6H PRN PRN Reason: Pain Trazodone HCl (Desyrel) 100 mg PO HS [facility] Last Admin: 04/24/17 20:56 Dose: 100 mg
[2017-04-25] MEDS ORDERED: Lisinopril 5 MG TAB PO SCH ×2 (15:45→18:45)
[2017-04-25] MEDS ORDERED: Lorazepam 2 MG/ML VIAL SLOW IVP SCH (15:45)
[2017-04-25] MEDS: Atorvastatin Calcium 40 MG TAB PO SCH (20:32)
[2017-04-25] MEDS: Nicotine 14 MG PATCH TD SCH (20:34)
[2017-04-25] MEDS: traZODone HCl 50 MG TAB PO SCH (20:34)
[2017-04-26] MEDS: Levothyroxine 175 MCG TAB PO SCH (05:44)
[2017-04-26] MEDS: Nitroglycerin 2% Ointment 1 INCH/1 GM Packet TOP SCH (05:44)
[2017-04-26] MEDS: Sodium Chloride 0.9% 1,000 ML IV SCH ×2 (05:44→13:03)
[2017-04-26 08:34] VITALS: TEMP 97.6
[2017-04-26] MEDS ORDERED: Lisinopril 5 MG TAB PO SCH (09:00)
[2017-04-26] MEDS ORDERED: Lisinopril 10 MG TAB PO SCH (09:00)
[2017-04-26] MEDS: Clopidogrel Bisulfate 75 MG TAB PO SCH (09:34)
--- NOTE | 2017-04-26 12:19 | PDOC.CTH ---
Cardiology Progress Note - Subjective The pt seen and examined. No overnight events. No cardiac complaints. - Objective Vital Signs Temp Pulse Resp BP BP Pulse Ox 04/26/17 10:45 64 139/61 04/26/17 08:34 97.6 F 59 L 18 96 04/26/17 08:30 97.6 F 59 L 18 112/66 96 04/26/17 05:22 97.7 F 59 L 18 128/56 L 96 Weight 250 lb 12.8 oz 04/25/17 04/26/17 04/27/17 06:59 06:59 06:59 Intake Total 2487 1074 Output Total 400 1000 Balance 2087 74 - Physical Examination General/Neuro: alert & oriented x3 Neck: no JVD present Lungs: CTA Heart: RRR Abdomen: soft Extremities: other: (No edema) - Telemetry Telemetry Rhythm: SR 60s - Labs Result Diagrams: 04/25/17 04:42 04/25/17 04:42 Troponin/CKMB CK-MB (CK-2) 33.9 ng/mL (0-6.6) H* 04/23/17 19:29 Troponin I 7.186 ng/mL (< 0.028) H* 04/24/17 01:22 - Assessment/Plan 1. NSTEMI with s/p PCI to RCA on 04/24/17 - stable with Metoprolol 25mg 1/2tab daily, Lisinopril 5mg daily, Plavix, and ASA 2. HTN - Decreased Metprolol 25mg 1 tab QD to 1/2tab daily and re-start Lisinopril 5mg daily; cont. monitor 3. Hyperlipidemia - on Statin without any SE at this time 4. Hypothyroidism - managed by PCP 5. Hep C - MAR reviewed * From cardiac standpoints, the pt is stable to d/c today; The pt will f/u with Dr Weaver or Institutional Research Director at [facility] within 2-4wks. Review of Systems - Review of Systems Constitutional: reports: no symptoms reported EENTM: reports: no symptoms reported Respiratory: reports: no symptoms reported Cardiac (ROS): reports: no symptoms reported ABD/GI: reports: no symptoms reported : reports: no symptoms reported Musculoskeletal: reports: no symptoms reported
[2017-04-26 12:25] VITALS: BP 134/67
--- NOTE | 2017-04-26 16:12 | DIS ---
DATE OF DISCHARGE: 04/26/2017 DISCHARGE DISPOSITION: Home. FOLLOWUP: 1. Follow up with primary care physician at [facility] in 1 week. 2. Follow up with Cardiology, Dr. Weaver, in 2 weeks. ALLERGIES: No known drug allergies. Outpatient cardiac rehabilitation. Follow up recommended. 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 Weaver. ALLERGIES: No known drug allergies. The patient was seen and examined on the day of discharge. Denies any new complaints. No chest pain , shortness of breath, palpitations reported. DISCHARGE MEDICATIONS: Amlodipine 5 mg daily as needed, aspirin 81 mg daily, Plavix 75 mg daily, lev othyroxine 175 mcg daily, lisinopril 5 mg daily, Toprol-XL 12.5 mg daily, sublingual nitroglycerin as needed, Zoloft 200 mg daily, and trazodone 100 mg at bedtime. BRIEF HOSPITAL COURSE: Patient is a 52-year-old male with hypertension who presented to the hospital with chest discomfort. Please refer to the history and physical dated 04/23/2017 for further detail s. The patient was admitted to the hospital with diagnosis of non-ST elevation [place]. His maximum troponin this admission was 7.186. He was seen by Cardiology, Dr. Weaver. Cardiac catheterization was pe rformed with stent placement to the RCA on 04/24/2017. His medications have been optimized per [facility] ology on the day of discharge. He is chest pain free. Lifestyle modification was emphasized. He meredith s been cleared by Cardiology for discharge. FINAL DIAGNOSES: 1. Non-ST elevation myocardial infarction status post percutaneous coronary intervention to right co ronary artery on 04/24/2017. Patient will continue aspirin and Plavix along with beta blockers, FER inhibitor, and statin. 2. Hypertension. 3. Hyperlipidemia. 4. Hypothyroidism. 5. Chronic hepatitis C. 6. Chronic kidney disease, stage 2. 7. Mild hyponatremia. 8. Obesity with body mass index of 37 9. Elevated CK at 484 on admission. Repeat CK as outpatient is recommended. 10. Depression and chronic insomnia. Primary care physician is advised to follow. Plan of care was discussed with patient and the family in detail. They stated understanding.
[2017-04-27] MEDS ORDERED: Lisinopril 5 MG TAB PO SCH (09:00)
--- NOTE | 2017-05-03 13:43 | EKG ---
Test Reason : Blood Pressure : / mmHG Vent. Rate : 059 BPM Atrial Rate : 059 BPM P-R Int : 154 ms QRS Dur : 086 ms QT Int : 440 ms P-R-T Axes : 040 030 044 degrees QTc Int : 435 ms Sinus bradycardia Otherwise normal ECG Confirmed by ALEXANDRA RODGERS ([id number]), business editor [address] ([id number]) on 05/03/2017 1:43:02 PM Referred By: Confirmed By:ALEXANDRA RODGERS
--- NOTE | 2017-05-03 13:43 | EKG ---
Test Reason : CP Blood Pressure : / mmHG Vent. Rate : 060 BPM Atrial Rate : 060 BPM P-R Int : 152 ms QRS Dur : 092 ms QT Int : 444 ms P-R-T Axes : 007 010 047 degrees QTc Int : 444 ms Normal sinus rhythm Incomplete right bundle branch block Inferior infarct , age undetermined Abnormal ECG Confirmed by ALEXANDRA RODGERS ([id number]), editor managing newspaper [address] ([id number]) on 05/03/2017 1:43:21 PM Referred By: Confirmed By:ALEXANDRA RODGERS
--- NOTE | 2017-05-03 13:43 | EKG ---
Test Reason : Blood Pressure : / mmHG Vent. Rate : 062 BPM Atrial Rate : 062 BPM P-R Int : 118 ms QRS Dur : 084 ms QT Int : 424 ms P-R-T Axes : 023 013 044 degrees QTc Int : 430 ms Normal sinus rhythm Normal ECG Confirmed by ALEXANDRA RODGERS ([id number]), marketing editor [address] ([id number]) on 05/03/2017 1:43:09 PM Referred By: Confirmed By:ALEXANDRA RODGERS
--- NOTE | 2017-05-04 16:15 | EKG ---
Test Reason : Blood Pressure : / mmHG Vent. Rate : 060 BPM Atrial Rate : 060 BPM P-R Int : 138 ms QRS Dur : 092 ms QT Int : 464 ms P-R-T Axes : 025 049 -12 degrees QTc Int : 464 ms Normal sinus rhythm Incomplete right bundle branch block T wave abnormality, consider inferolateral ischemia Prolonged QT Abnormal ECG When compared with ECG of 03-APR-2017 01:58, (Unconfirmed) T wave inversion now evident in Lateral leads Confirmed by Hilario CAREY ([id number]) on 05/04/2017 4:15:15 PM Referred By: SAMANTHA Confirmed By:Hilario CAREY
--- NOTE | 2017-05-04 16:16 | EKG ---
Test Reason : Blood Pressure : / mmHG Vent. Rate : 052 BPM Atrial Rate : 052 BPM P-R Int : 154 ms QRS Dur : 096 ms QT Int : 472 ms P-R-T Axes : 036 035 010 degrees QTc Int : 438 ms Sinus bradycardia Cannot rule out Inferior infarct , age undetermined Abnormal ECG When compared with ECG of 24-APR-2017 03:38, (Unconfirmed) Nonspecific T wave abnormality has replaced inverted T waves in Lateral leads Confirmed by Hilario CAREY ([id number]) on 05/04/2017 4:15:51 PM Referred By: COLLETTE Confirmed By:Hilario CAREY
--- NOTE | 2017-05-04 16:28 | EKG ---
Test Reason : Blood Pressure : / mmHG Vent. Rate : 058 BPM Atrial Rate : 058 BPM P-R Int : 172 ms QRS Dur : 092 ms QT Int : 456 ms P-R-T Axes : 022 014 -20 degrees QTc Int : 447 ms Sinus bradycardia Inferior infarct (cited on or before 24-APR-2017) Abnormal ECG When compared with ECG of 24-APR-2017 09:09, (Unconfirmed) No significant change was found Confirmed by Hilario CAREY ([id number]) on 05/04/2017 4:28:14 PM Referred By: COLLETTE Confirmed By:Hilario CAREY
== END 2017-04-26 13:37 | disposition home or self-care (01) | DRG 247 ==
LOC: ERS 15:59 → IMCU/EMU 04-24 00:02 → 2NO 04-25 10:51
PROVIDERS: ADMIT Internal Medicine; ATTEND Internal Medicine
PROC: 027034Z Dilation of Coronary Artery, One Artery with Drug-eluting Intraluminal Device, Percutaneous Approach (ICD-10-PCS; principal; 2017-04-24)
PROC: 02C03ZZ Extirpation of Matter from Coronary Artery, One Artery, Percutaneous Approach (ICD-10-PCS; 2017-04-24)
PROC: 4A023N7 Measurement of Cardiac Sampling and Pressure, Left Heart, Percutaneous Approach (ICD-10-PCS; 2017-04-24)
PROC: B2111ZZ Fluoroscopy of Multiple Coronary Arteries using Low Osmolar Contrast (ICD-10-PCS; 2017-04-24)
PROC: B2151ZZ Fluoroscopy of Left Heart using Low Osmolar Contrast (ICD-10-PCS; 2017-04-24)
PROC: 3E03317 Introduction of Other Thrombolytic into Peripheral Vein, Percutaneous Approach (ICD-10-PCS; 2017-04-24)
DX: I21.4 Non-ST elevation (NSTEMI) myocardial infarction (principal); E87.1 Hypo-osmolality and hyponatremia; N18.3 Chronic kidney disease, stage 3 (moderate); B18.2 Chronic viral hepatitis C; E03.9 Hypothyroidism, unspecified; E78.5 Hyperlipidemia, unspecified; F17.210 Nicotine dependence, cigarettes, uncomplicated; I12.9 Hypertensive chronic kidney disease with stage 1 through stage 4 chronic kidney disease, or unspecified chronic kidney disease; E66.9 Obesity, unspecified; Z68.37 Body mass index [BMI] 37.0-37.9, adult; F32.9 Major depressive disorder, single episode, unspecified; G47.00 Insomnia, unspecified; F43.10 Post-traumatic stress disorder, unspecified; I25.110 Atherosclerotic heart disease of native coronary artery with unstable angina pectoris; M54.5 Low back pain; G89.29 Other chronic pain; K21.9 Gastro-esophageal reflux disease without esophagitis
CPT/HCPCS: 36415; 36416; 71045; 71275; 76942; 80048; 80053; 82553; 83690; 84484; 85025; 85347; 86850; 86900; 86901; 92941; 92977; 93005; 93010; 93306; 93458; 93798; 96372; 96374; 96375; 96376; A4216; C1725; C1757; C1769; C1874; C1887; C9606; J0153; J1644; J1650; J2270; J2405; J3246

== ENCOUNTER 2017-05-13 11:01 | Emergency (ER) | payer OTHER ==
[2017-05-13 11:58] LABS: #Eosinphils 0.2 thou/uL (0.0-0.7); #Lymphocytes 1.7 thou/uL (1.20-3.40); #Monocytes 0.8 thou/uL (0.11-0.59); #Neutrophils 6.4 thou/uL (1.40-6.50); %Basophils 0.5 % (0.0-1.0); %Eosinophils 2.1 % (0.0-10.0); %Lymphocytes 18.8 % (21.0-51.0); %Monocytes 9.1 % (0.0-10.0); %Neutrophils 69.5 % (42.0-75.0); Hemoglobin 15.4 g/dL (14.0-18.0); Mean Corpuscular HGB CONC 34.4 g/dL (32.0-36.0); Mean Corpuscular Hemoglobin 31.9 pg (27.0-31.0); Mean Corpuscular Volume 92.8 fl (80.0-94.0); Platelet Count 261 thou/uL (130-400); RBC Distribution Width 11.6 % (11.5-14.5); Red Blood Cell (RBC) Count 4.82 mill/uL (4.70-6.10); White Blood Cell (WBC) Count 9.2 thou/uL (4.8-10.8)
[2017-05-13 12:10] LABS: Anion Gap 12 mmol/L (10-20); BUN (Urea Nitrogen) 15 mg/dL (8.4-25.7); Calc. Creatinine Clearance 0 mL/min (70-130); Calcium 9.5 mg/dL (7.8-10.44); Carbon Dioxide 26 mmol/L (22-29); Chloride 104 mmol/L (98-107); Estimated GFR-MDRD 62; Glucose 103 mg/dL (70-105); Potassium 4.2 mmol/L (3.5-5.1); Sodium 138 mmol/L (136-145)
[2017-05-13] MEDS ORDERED: Ketorolac Tromethamine 30 MG/ML VIAL ONE (12:11)
--- NOTE | 2017-05-13 13:24 | CT ---
CT OF THE NECK SOFT TISSUES WITH CONTRAST: Comparison: None. History: Right side of neck and jaw pain that woke him up from sleep. Technique: Multiple contiguous axial images were obtained in a CT of the neck soft tissues with contr ast. Sagittal and coronal reformats were performed. FINDINGS: No mucosal abnormality is seen in the nasopharynx, oropharynx, hypopharynx or subglottic regions. No cervical adenopathy was seen. There was a mild amount of atherosclerotic calcification in the caroti d arteries near the bifurcations. The salivary glands are symmetric without focal abnormality. The pa rapharyngeal spaces are symmetric without focal abnormality. No mass or fluid collection is seen in t he neck. There is a small amount of fluid in the left maxillary sinus. The mastoid air cells and other paranas al sinuses are well aerated. The visualized intracranial structures are unremarkable. IMPRESSION: No evidence of acute soft tissue abnormality of the neck. POS: [facility]
[2017-05-13] MEDS ORDERED: ISOVUE-370 76%-LOCM 1 ML ONE (13:25)
== END 2017-05-13 13:06 | disposition home or self-care (01) ==
LOC: ERS 11:01
DX: M26.601 Right temporomandibular joint disorder, unspecified (principal); E03.9 Hypothyroidism, unspecified; I10 Essential (primary) hypertension; F43.10 Post-traumatic stress disorder, unspecified; Z87.891 Personal history of nicotine dependence; Z79.899 Other long term (current) drug therapy; Z79.82 Long term (current) use of aspirin
CPT/HCPCS: 70491; 80048; 85025; 93005; 96374; J1885

== ENCOUNTER 2017-06-16 19:27 | Emergency (ER) | payer OTHER ==
[2017-06-16 20:13] LABS: #Basophils 0.1 thou/uL (0.0-0.2); #Eosinphils 0.2 thou/uL (0.0-0.7); #Lymphocytes 1.9 thou/uL (1.20-3.40); #Monocytes 0.5 thou/uL (0.11-0.59); #Neutrophils 4.3 thou/uL (1.40-6.50); %Basophils 0.9 % (0.0-1.0); %Eosinophils 3.1 % (0.0-10.0); %Lymphocytes 26.9 % (21.0-51.0); %Monocytes 7.6 % (0.0-10.0); %Neutrophils 61.5 % (42.0-75.0); Hemoglobin 14.7 g/dL (14.0-18.0); Mean Corpuscular HGB CONC 33.8 g/dL (32.0-36.0); Mean Corpuscular Hemoglobin 30.9 pg (27.0-31.0); Mean Corpuscular Volume 91.4 fl (80.0-94.0); Mean Platelet Volume 6.7 fL (7.4-10.4); Platelet Count 243 thou/uL (130-400); RBC Distribution Width 11.9 % (11.5-14.5); Red Blood Cell (RBC) Count 4.77 mill/uL (4.70-6.10); White Blood Cell (WBC) Count 7.1 thou/uL (4.8-10.8)
[2017-06-16] MEDS ORDERED: Morphine 4 MG/ML VIAL ONE (20:34)
--- NOTE | 2017-06-16 20:36 | RAD ---
RADIOGRAPH CHEST 1 VIEW: HISTORY: 52-year-old male with acute chest pain. FINDINGS: There are no air space densities, pulmonary edema, pneumothorax, or cardiomegaly. The lateral costop hrenic angles are sharp. IMPRESSION: No acute cardiopulmonary findings. adamaris POS: [facility]
[2017-06-16 20:37] LABS: ALT (SGPT) 21 U/L (8-55); AST (SGOT) 17 U/L (5-34); Albumin 4.2 g/dL (3.5-5.0); Alkaline Phosphatase 53 U/L (40-150); Anion Gap 15 mmol/L (10-20); BUN (Urea Nitrogen) 18 mg/dL (8.4-25.7); Bilirubin, Total 0.4 mg/dL (0.2-1.2); CK (CPK) 178 U/L (30-200); Calc. Creatinine Clearance 0 mL/min (70-130); Calcium 10.5 mg/dL (7.8-10.44); Carbon Dioxide 20 mmol/L (22-29); Chloride 103 mmol/L (98-107); Estimated GFR-MDRD 57; Globulin 2.8 g/dL (2.4-3.5); Glucose 121 mg/dL (70-105); Lipase 30 U/L (8-78); Potassium 3.4 mmol/L (3.5-5.1); Sodium 135 mmol/L (136-145)
[2017-06-16] MEDS ORDERED: Ondansetron HCl/PF 4 MG/2 ML Vial ONE (20:37)
[2017-06-16 20:41] LABS: CKMB 2.7 ng/mL (0-6.6); Troponin I 0.016 ng/mL (< 0.028)
== END 2017-06-16 23:10 | disposition left against medical advice (07) ==
LOC: ERS 19:27
DX: R07.9 Chest pain, unspecified (principal); I25.10 Atherosclerotic heart disease of native coronary artery without angina pectoris; I25.2 Old myocardial infarction; I10 Essential (primary) hypertension; G89.29 Other chronic pain; F43.10 Post-traumatic stress disorder, unspecified; Z87.891 Personal history of nicotine dependence; Z79.82 Long term (current) use of aspirin; Z79.899 Other long term (current) drug therapy
CPT/HCPCS: 36415; 71045; 80053; 82553; 83690; 84484; 85025; 93005; 96374; 96375; J2270; J2405

== ENCOUNTER 2017-10-03 15:31 | Inpatient (IN) | payer OTHER, SELFPAY ==
[2017-10-03 16:08] LABS: #Basophils 0.1 thou/uL (0.0-0.2); #Eosinphils 0.2 thou/uL (0.0-0.7); #Lymphocytes 2.6 thou/uL (1.20-3.40); #Monocytes 0.8 thou/uL (0.11-0.59); %Basophils 0.6 % (0.0-1.0); %Eosinophils 1.8 % (0.0-10.0); %Lymphocytes 26.9 % (21.0-51.0); %Monocytes 8.3 % (0.0-10.0); %Neutrophils 62.4 % (42.0-75.0); Hemoglobin 15.4 g/dL (14.0-18.0); Mean Corpuscular HGB CONC 35.3 g/dL (32.0-36.0); Mean Corpuscular Hemoglobin 31.6 pg (27.0-31.0); Mean Corpuscular Volume 89.5 fL (78.0-98.0); Mean Platelet Volume 6.5 fL (7.4-10.4); Platelet Count 305 thou/uL (130-400); RBC Distribution Width 11.7 % (11.5-14.5); Red Blood Cell (RBC) Count 4.86 mill/uL (4.70-6.10); White Blood Cell (WBC) Count 9.6 thou/uL (4.8-10.8)
[2017-10-03 16:25] LABS: ALT (SGPT) 37 U/L (8-55); AST (SGOT) 22 U/L (5-34); Albumin 4.7 g/dL (3.5-5.0); Alkaline Phosphatase 52 U/L (40-150); Anion Gap 11 mmol/L (10-20); BUN (Urea Nitrogen) 24 mg/dL (8.4-25.7); Bilirubin, Total 0.8 mg/dL (0.2-1.2); CK (CPK) 250 U/L (30-200); Calc. Creatinine Clearance 0 mL/min (70-130); Calcium 9.8 mg/dL (7.8-10.44); Carbon Dioxide 25 mmol/L (22-29); Chloride 105 mmol/L (98-107); Estimated GFR-MDRD 44; Globulin 2.9 g/dL (2.4-3.5); Glucose 88 mg/dL (70-105); Lipase 36 U/L (8-78); Potassium 4.1 mmol/L (3.5-5.1); Protein, Total 7.6 g/dL (6.0-8.3); Sodium 137 mmol/L (136-145)
[2017-10-03 16:30] LABS: CKMB 2.8 ng/mL (0-6.6); Troponin I Less than 0.010 ng/mL (< 0.028)
[2017-10-03] MEDS ORDERED: Nitroglycerin 2% Ointment 1 INCH/1 GM Packet ONE (16:47)
[2017-10-03] MEDS ORDERED: Fentanyl 100 MCG/2 ML VIAL ONE (16:47)
[2017-10-03] MEDS ORDERED: Acetaminophen 500 MG TAB ONE (16:47)
--- NOTE | 2017-10-03 16:48 | RAD ---
PORTABLE CHEST ONE VIEW: 10/03/17 at 4:39 p.m. HISTORY: Chest pain. FINDINGS: Comparison made with exam of 06/16/17. The heart size is normal. The lungs are expanded without focal areas of consolidation, pneumothorax o r pleural effusions. IMPRESSION: No acute process. POS: [facility]
[2017-10-03] MEDS ORDERED: Nitroglycerin 50 MG/250 ML BOT 250 ML ONE (17:50)
[2017-10-03] MEDS ORDERED: Nitroglycerin 50 MG/250 ML BOT 250 ML IVPB SCH (18:00)
[2017-10-03 19:37] LABS: Troponin I Less than 0.010 ng/mL (< 0.028)
[2017-10-03] MEDS ORDERED: Lidocaine 1% (PF) 30 ML VIAL ONE (20:01)
[2017-10-03] MEDS ORDERED: Midazolam HCl 2 mg/2 ml Vial ONE (20:50)
[2017-10-03] MEDS ORDERED: Acetaminophen/Codeine 30-300mg Tablet PO PRN ×2 (21:05)
[2017-10-03] MEDS ORDERED: Nitroglycerin 0.4 MG TAB (25 Tab Bottle) SL PRN ×2 (21:05→23:23)
[2017-10-03] MEDS ORDERED: traMADol HCl 50 MG TAB PO PRN (21:05)
[2017-10-03] MEDS ORDERED: Sodium Chloride 0.9% 200 ML IV PRN (21:15)
[2017-10-03 21:44] VITALS: BMI 35.9
[2017-10-03 22:30] LABS: Troponin I 0.014 ng/mL (< 0.028)
[2017-10-03] MEDS ORDERED: Ondansetron HCl/PF 4 MG/2 ML Vial IVP PRN (23:21)
[2017-10-03] MEDS ORDERED: Amlodipine 5 MG TAB PO PRN (23:23)
[2017-10-04] MEDS: Acetaminophen 325 MG TAB PO PRN ×2 (00:30→09:04)
--- NOTE | 2017-10-04 03:01 | HP ---
CODE STATUS: FULL CODE. PRIMARY CARE PHYSICIAN: [facility]. TIME OF EVALUATION: 8:00 p.m. CHIEF COMPLAINT: Chest pain. HISTORY OF PRESENT ILLNESS: This is a 52-year-old male patient with past medical history of coronary artery disease, status post stent in the past, came to the hospital after having severe chest pain that was in the middle of the chest, radiating to the right side with no clear triggers. Patient reportedly that taking a deep breath or coughing could aggravate the pain. No alleviating factors. Patient will place him on nitroglycerin drip that improved the pain. The character of the pain is dull. REVIEW OF SYSTEMS: Constitutional: No fever, no chills. Generalized weakness. Respiratory: No cough, no sputum production or shortness of breath. Cardiovascular: Patient had chest pain. No palpitation, no shortness of breath. Gastrointestinal: Nausea, no vomiting, no diarrhea, abdominal pain. 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 Genitourinary: No burning on urination. Extremities: No leg swelling. All other systems were reviewed and negative except for the findings mentioned above. PAST MEDICAL HISTORY: History of coronary artery disease status post stent, hypothyroidism, hepatitis C, hypertension, chronic back pain. FAMILY HISTORY: Father had cardiac issues. PAST SURGICAL HISTORY: Appendectomy, thyroidectomy, vascular reconstruction, cardiac catheterization in May of this year. PSYCHIATRIC HISTORY: Posttraumatic stress disorder. SOCIAL HISTORY: Drinks alcohol 3 times a week. No drug use. Former tobacco user. ALLERGIES: No known drug allergies. REPORTED MEDICATIONS: Lisinopril, Synthroid, Zoloft, aspirin, metoprolol, atorvastatin, Plavix, trazodone, gabapentin. PHYSICAL EXAMINATION: VITAL SIGNS: On presentation blood pressure 133/61 with heart rate 60, respiratory rate was 17, oxygen saturation 96% on room air. GENERAL APPEARANCE: The patient is alert and oriented, in mild distress due to chest pain. HEENT: Eye: Normal conjuctivae. Moist oral mucosa. Anicteric. NECK: No JVD. RESPIRATORY: Bilateral air entry. No rales, no wheezing. Symmetric expansion. CARDIOVASCULAR: Normal rate, regular rhythm. No murmurs, no gallop. No edema. ABDOMEN: Soft, normal bowel sounds. MUSCULOSKELETAL: Baseline range of motion and strength. No tenderness. SKIN: Warm and intact. No pallor, no rash or redness. NEUROLOGIC: Baseline sensory. No evidence of any new focal deficit. Baseline speech. Cranial nerves seems to be intact. PSYCHIATRIC: The patient is in a good mood. No anxiety, oriented, and optimal judgment. LABORATORY DATA: Reviewed. White count 9.6, hemoglobin 15, platelet count 305. D-dimer was negative. Sodium 137, potassium 4.1, chloride 105, carbon dioxide 25, anion gap 11, creatinine 1.63 previous admission in May was 1.3. LFTs are normal. CK was 250. Troponins were negative x3. His EKG was reviewed , normal sinus rhythm with a rate of 71 with no significant changes in ST-T wave basically was in normal EKG. Chest x-ray, the patient has no acute process. ASSESSMENT AND PLAN: The patient will be placed in the hospital with following medical problems: 1. Chest pain related to coronary syndrome, possibly unstable angina. Cardiology will see the patient. Currently, the patient going for cardiac catheterization given a strong past cardiac history. Patient has been on nitro drip was on improvement of the pain. We will continue for now, reconcile home medications, further reconciliation depending on Cardiology. 1. Patient is obese, advised to lose weight. 2. Hypothyroidism. Continue hormone replacement. 3. Hepatitis C that was treated and resolved, no evidence of any acute problems. 4. Hypertension that was controlled, we will reconcile home meds, we will adjust treatment as needed. 5. Chronic back pain. We will reconcile home medications. 6. Deep venous thrombosis prophylaxis. MTDD
[2017-10-04 03:20] LABS: #Basophils 0.1 thou/uL (0.0-0.2); #Eosinphils 0.1 thou/uL (0.0-0.7); #Lymphocytes 2.7 thou/uL (1.20-3.40); #Monocytes 0.8 thou/uL (0.11-0.59); #Neutrophils 3.9 thou/uL (1.40-6.50); %Basophils 0.9 % (0.0-1.0); %Eosinophils 1.9 % (0.0-10.0); %Lymphocytes 35.8 % (21.0-51.0); %Neutrophils 51.4 % (42.0-75.0); Hemoglobin 13.1 g/dL (14.0-18.0); Mean Corpuscular HGB CONC 35.7 g/dL (32.0-36.0); Mean Corpuscular Hemoglobin 32.3 pg (27.0-31.0); Mean Corpuscular Volume 90.6 fL (78.0-98.0); Mean Platelet Volume 6.5 fL (7.4-10.4); Platelet Count 239 thou/uL (130-400); RBC Distribution Width 11.7 % (11.5-14.5); Red Blood Cell (RBC) Count 4.07 mill/uL (4.70-6.10); White Blood Cell (WBC) Count 7.7 thou/uL (4.8-10.8)
[2017-10-04 03:42] LABS: Anion Gap 11 mmol/L (10-20); BUN (Urea Nitrogen) 23 mg/dL (8.4-25.7); Calc. Creatinine Clearance 110 mL/min (70-130); Calcium 8.5 mg/dL (7.8-10.44); Carbon Dioxide 24 mmol/L (22-29); Chloride 105 mmol/L (98-107); Estimated GFR-MDRD 60; Glucose 106 mg/dL (70-105); Potassium 3.5 mmol/L (3.5-5.1); Sodium 136 mmol/L (136-145)
[2017-10-04] MEDS: Levothyroxine 175 MCG TAB PO SCH (06:14)
[2017-10-04] MEDS: Enoxaparin Sodium 40 MG/0.4 ML SYRINGE SC SCH (08:55)
[2017-10-04] MEDS: Lisinopril 5 MG TAB PO SCH (08:55)
[2017-10-04] MEDS ORDERED: Aspirin 81 mg Enteric Coated Tablet PO SCH (11:00)
[2017-10-04] MEDS ORDERED: Clopidogrel Bisulfate 75 MG TAB PO SCH (11:00)
[2017-10-04] MEDS ORDERED: Calcium Carbonate 500 MG ChewTAB PO PRN (11:53)
--- NOTE | 2017-10-04 14:38 | PDOC.PN ---
- Subjective Encounter Start Date: 10/04/17 Encounter Start Time: 09:40 Pt seen for followup re: chest pain. Reports feeling better. Chest pain is better. - Objective Resuscitation Status: Resuscitation Status FULL:Full Resuscitation MAR Reviewed: Yes Vital Signs & Weight: Vital Signs (12 hours) Temp Pulse Resp BP Pulse Ox 10/04/17 12:00 97.6 F 10/04/17 08:55 60 143/84 H 10/04/17 07:34 98 F 60 17 100 10/04/17 07:00 98 F 10/04/17 06:40 100 10/04/17 04:00 97.9 F 10/04/17 03:52 97.9 F 56 L 14 100 10/04/17 03:00 97.9 F Most Recent Monitor Data Heart Rate from ECG 61 NIBP 129/74 NIBP BP-Mean 82 Respiration from ECG 18 SpO2 100 I&O: 10/03/17 10/04/17 10/05/17 06:59 06:59 06:59 Intake Total 785.0 720 Output Total 250 650 Balance 535.0 70 Result Diagrams: 10/04/17 03:05 10/04/17 03:05 EKG Reviewed by me: Yes (Tele: NSR) Phys Exam - Physical Examination Obese HEENT: moist MMs, sclera anicteric, oral pharynx no lesions, 2+ tonsils Neck: no nodes, no JVD, supple, full ROM Respiratory: no wheezing, no rales, no rhonchi, clear to auscultation bilateral Cardiovascular: RRR, no rub S1, s2 Gastrointestinal: soft, non-tender, no distention, positive bowel sounds Neurological: moves all 4 limbs Psychiatric: normal affect, A&O x 3 Dx/Plan (1) Chest pain Code(s): R07.9 - CHEST PAIN, UNSPECIFIED Status: Acute Comment: s/p cath, diffuse CAD (2) GERD (gastroesophageal reflux disease) Code(s): K21.9 - GASTRO-ESOPHAGEAL REFLUX DISEASE WITHOUT ESOPHAGITIS Status: Chronic Comment: stable, continue PPI (3) Hypertension Code(s): I10 - ESSENTIAL (PRIMARY) HYPERTENSION Status: Chronic Qualifiers: Hypertension type: essential hypertension Qualified Code(s): I10 - Essential (primary) hypertension Comment: monitor vital signs, titrate antihypertensives as needed (4) Hypothyroidism Code(s): E03.9 - HYPOTHYROIDISM, UNSPECIFIED Status: Chronic Comment: Continue Levothyroxine (5) Tobacco abuse Code(s): Z72.0 - TOBACCO USE Status: Acute Comment: start nicotine replacement therapy (6) Hepatitis C virus Code(s): B19.20 - UNSPECIFIED VIRAL HEPATITIS C WITHOUT HEPATIC COMA Status: Chronic Qualifiers: Viral hepatitis chronicity: carrier Qualified Code(s): B18.2 - Chronic viral hepatitis C (7) Post traumatic stress disorder (PTSD) Code(s): F43.10 - POST-TRAUMATIC STRESS DISORDER, UNSPECIFIED Status: Chronic - Plan * . Review of Systems - Review of Systems Constitutional: negative: fever, chills, sweats, weakness, malaise Respiratory: negative: Cough, Shortness of Breath, SOB with Excertion, Pleuritic Pain, Wheezing Cardiovascular: chest pain. negative: palpitations, orthopnea, paroxysmal nocturnal dyspnea, edema, light headedness Gastrointestinal: negative: Nausea, Vomiting, Abdominal Pain, Diarrhea, Constipation, Melena, Hematochezia Genitourinary: negative: Dysuria, Frequency, Incontinence, Hematuria, Retention Musculoskeletal: negative: Neck Pain, Shoulder Pain, Arm Pain, Back Pain, Hand Pain, Leg Pain, Foot Pain - Medications/Allergies Allergies/Adverse Reactions: Allergies Allergy/AdvReac Type Severity Reaction Status Date / Time No Known Drug Allergies Allergy Verified 10/03/17 21:48 Medications: Current Medications Acetaminophen (Tylenol) 650 mg PO Q4H PRN PRN Reason: Headache/Fever or Pain Last Admin: 10/04/17 09:04 Dose: 650 mg Acetaminophen/Codeine Phosphate (Tylenol #3) 1 tab PO Q4H PRN PRN Reason: Mild Pain (1-3) Acetaminophen/Codeine Phosphate (Tylenol #3) 2 tab PO Q4H PRN PRN Reason: Moderate Pain (4-6) Amlodipine Besylate (Norvasc) 5 mg PO DAILY PRN PRN Reason: SBP GREATER THAN 160 Aspirin (Ecotrin) 81 mg PO DAILY [facility] Atorvastatin Calcium (Lipitor) 40 mg PO HS [facility] Calcium Carbonate (Tums) 1,000 mg PO Q4H PRN PRN Reason: Heartburn or Indigestion Last Admin: 10/04/17 11:58 Dose: 1,000 mg Clopidogrel Bisulfate (Plavix) 75 mg PO DAILY [facility] Enoxaparin Sodium (Lovenox) 40 mg SC 0900 [facility] Last Admin: 10/04/17 08:55 Dose: 40 mg Sodium Chloride (Normal Saline 0.9%) 200 mls @ 0 mls/hr IV ONE PRN; As Directed PRN Reason: SBP < 90 Stop: 10/05/17 21:16 Levothyroxine Sodium (Synthroid) 175 mcg PO 0600 [facility] Last Admin: 10/04/17 06:14 Dose: 175 mcg Lisinopril (Zestril) 5 mg PO DAILY [facility] Last Admin: 10/04/17 08:55 Dose: 5 mg Metoprolol Succinate (Toprol Xl) 12.5 mg PO DAILY [facility] Last Admin: 10/04/17 09:04 Dose: 12.5 mg Nitroglycerin (Nitrostat) 0.4 mg SL Q5MIN PRN PRN Reason: Chest Pain Ondansetron HCl (Zofran) 4 mg IVP Q6H PRN PRN Reason: Nausea/Vomiting Ranolazine (Ranexa) 500 mg PO BID [facility] Last Admin: 10/04/17 08:56 Dose: 500 mg Sertraline HCl (Zoloft) 200 mg PO DAILY [facility] Last Admin: 10/04/17 10:47 Dose: 200 mg Tramadol HCl (Ultram) 50 mg PO Q6H PRN PRN Reason: Moderate Pain (4-6) Trazodone HCl (Desyrel) 100 mg PO HS [facility]
--- NOTE | 2017-10-04 17:07 | CON ---
DATE OF CONSULTATION: 10/03/2017 HISTORY OF PRESENT ILLNESS: The patient is a 52-year-old gentleman who presents with recurrent chest discomfort. The patient was seen initially in 2017 with severe substernal chest discomfort. He went to the cardiac catheterization where he was found to have a mild decrease in left ventricular ejection fraction, 45%-50%. The patient had two stents placed, one into the left circumflex and right coronary artery. The patient was placed on medical therapy. He was doing well until this afternoon when he presented with acute onset of substernal chest discomfort. The patient states that this discomfort has been persistent for the past 5 hours. The patient reports feeling dyspneic. PAST MEDICAL HISTORY: 1. Hypothyroidism. 2. Hypertension. 3. Chronic low back pain. 4. Hepatitis. PAST SURGICAL HISTORY: Appendectomy, thrombectomy. SOCIAL HISTORY: Denies any use of illicit drugs. The patient does admit to using tobacco. ALLERGIES: None. MEDICATIONS: See nursing list. PHYSICAL EXAMINATION: GENERAL: This is an ill-appearing gentleman in mild distress. VITAL SIGNS: Blood pressure was 125/70. NECK: Showed no jugular venous distention. LUNGS: Clear to auscultation. HEART: Regular rate and rhythm, normal S1, S2. ABDOMEN: Distended. EXTREMITIES: Showed no edema. LABORATORY DATA: Sodium 137, potassium 4.1, chloride 105, bicarbonate 25, BUN 24, creatinine 1.6, glucose is 80. Troponin less than 0.01. IMAGING: His EKG revealed normal sinus rhythm, normal ECG. IMPRESSION: 1. Unstable angina. 2. Coronary artery disease. 3. Hypertension. This gentleman has had persistent chest pain from a cardiac standpoint. I have discussed the option of going directly for cardiac catheterization since his pain has been persistent. Risks involved in cardiac catheterization including RI, bleeding, stroke, cardiac arrhythmia, and cardiac have been explained to the patient and the patient understands these risks and wishes to proceed. WANDY
[2017-10-04] MEDS ORDERED: Nicotine 21 MG PATCH TOP SCH (20:00)
[2017-10-04] MEDS ORDERED: Atorvastatin Calcium 40 MG TAB PO SCH (21:00)
[2017-10-04] MEDS ORDERED: traZODone HCl 50 MG TAB PO SCH (21:00)
[2017-10-05] MEDS: Levothyroxine 175 MCG TAB PO SCH (05:48)
[2017-10-05] MEDS ORDERED: Aspirin 81 mg Enteric Coated Tablet PO SCH (09:00)
[2017-10-05] MEDS ORDERED: Clopidogrel Bisulfate 75 MG TAB PO SCH ×2 (09:00)
[2017-10-05] MEDS ORDERED: Gabapentin 300 MG CAP PO SCH (09:00)
[2017-10-05 09:23] VITALS: BP 144/73; TEMP 97.4
[2017-10-05] MEDS: Enoxaparin Sodium 40 MG/0.4 ML SYRINGE SC SCH (09:35)
[2017-10-05] MEDS: Lisinopril 5 MG TAB PO SCH (09:36)
--- NOTE | 2017-10-05 10:25 | DIS ---
DATE OF ADMISSION: 10/03/2017 DATE OF DISCHARGE: 10/05/2017 PROCEDURE: Cardiac catheterization. CONSULTATIONS: Dr. Fred Roman, Cardiology Service. FINAL DIAGNOSES: 1. Unstable angina, status post cardiac catheterization which showed diffuse coronary artery disease . 2. Hypertension. 3. Hypothyroidism. 4. Tobacco abuse. 5. Chronic hepatitis C infection. 6. Post-traumatic stress disorder. 7. Gastroesophageal reflux disease. HOSPITAL COURSE: The patient was a 52-year-old male with past medical history of coronary artery disease, status post stent in the past who came to the hospital after having severe chest pain , which was located in the middle of the chest, it was radiating to the right side with no clear trig gers. The patient was evaluated in the emergency room, his white count was 9.6, hemoglobin 15, plate let count 305. D-dimers were negative. Electrolytes were within normal limits. Creatinine was 1.63 . LFTs were normal. CK was 250. Troponins were negative x3. His EKG showed normal sinus rhythm wi th rate of 71 beats per minute with no significant changes in ST-T wave. Chest x-ray did not show an y acute abnormalities. The patient was admitted to the hospital for further evaluation on his unstab le angina. Cardiology was consulted. He underwent cardiac catheterization by Dr. Fred Roman, dif fuse coronary artery disease and previous stent on the mid RCA showed wide patency, the lesions were in the range between 20% and 60%. His post-catheterization phase was uneventful. He was placed on t he Ranexa 500 mg twice a day. Today, he is seen and evaluated. He does not have much complaints to offer. He does not have much pain anymore. PHYSICAL EXAMINATION: VITAL SIGNS: Blood pressure is 144/73, pulse is 60, respiratory rate is 18, temperature is 97.4 and O2 saturation is 97% on room air. LUNGS: Clear. CARDIOVASCULAR: Heart S1, S2 normal, no S3, no S4, no any murmur. ABDOMEN: Soft and nontender. Bowel sounds are present, no organomegaly. EXTREMITIES: No clubbing, cyanosis or edema. NEUROLOGIC: He is alert and oriented x4. There is not any sensorimotor deficits present. Cranial n erves are intact. DISPOSITION: He is discharged home in good condition. ACTIVITIES: Limited per post-cath protocol. DIET: Heart healthy diet. 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 At the time of discharge, his medications are aspirin 81 mg once a day, atorvastatin 40 mg once a day, clopidogrel 75 mg once a day, gabapentin 300 mg daily, levothyroxine 175 mcg daily, lisinopril 5 mg daily, metoprolol 12.5 mg daily, nicotine patch 21 mg d aily, Ranexa 500 mg twice a day, Zoloft 200 mg daily. The patient is seen and examined [facility] and discharge time is less than 30 minutes.
== END 2017-10-05 12:20 | disposition home or self-care (01) | DRG 287 ==
LOC: ERS 15:31 → ERHOLD 18:01 → CCU 21:03 → 2NO 10-04 13:55
PROVIDERS: ADMIT Internal Medicine; ATTEND Internal Medicine
PROC: 4A023N7 Measurement of Cardiac Sampling and Pressure, Left Heart, Percutaneous Approach (ICD-10-PCS; principal; 2017-10-03)
PROC: B2111ZZ Fluoroscopy of Multiple Coronary Arteries using Low Osmolar Contrast (ICD-10-PCS; 2017-10-03)
DX: I25.110 Atherosclerotic heart disease of native coronary artery with unstable angina pectoris (principal); E03.9 Hypothyroidism, unspecified; B19.20 Unspecified viral hepatitis C without hepatic coma; I10 Essential (primary) hypertension; E66.9 Obesity, unspecified; Z68.35 Body mass index [BMI] 35.0-35.9, adult; M54.9 Dorsalgia, unspecified; G89.29 Other chronic pain; K21.9 Gastro-esophageal reflux disease without esophagitis; F43.10 Post-traumatic stress disorder, unspecified
CPT/HCPCS: 36415; 71045; 80048; 80053; 82553; 83690; 84484; 85025; 85379; 93005; 93010; 93454; 93798; 96361; 96365; 96366; 96375; 96376; 99152; 99406; C1769; J1644; J1650; J2001; J2250; J2270; J3010

== ENCOUNTER 2018-04-03 23:04 | Inpatient (IN) | payer OTHER, SELFPAY ==
[2018-04-03] MEDS ORDERED: Magnesium 2 GM/50 ML BAG (IN WATER) ONE (23:30)
[2018-04-03 23:34] LABS: #Basophils 0.1 thou/uL (0.0-0.2); #Eosinphils 0.2 thou/uL (0.0-0.7); #Lymphocytes 2.6 thou/uL (1.20-3.40); #Monocytes 0.9 thou/uL (0.11-0.59); #Neutrophils 6.9 thou/uL (1.40-6.50); %Basophils 0.5 % (0.0-1.0); %Eosinophils 2.1 % (0.0-10.0); %Lymphocytes 24.5 % (21.0-51.0); %Neutrophils 64.8 % (42.0-75.0); Hemoglobin 16.3 g/dL (14.0-18.0); Mean Corpuscular HGB CONC 34.4 g/dL (32.0-36.0); Mean Corpuscular Hemoglobin 31.3 pg (27.0-31.0); Mean Corpuscular Volume 90.9 fL (78.0-98.0); Mean Platelet Volume 6.5 fL (7.4-10.4); Platelet Count 302 thou/uL (130-400); RBC Distribution Width 11.6 % (11.5-14.5); Red Blood Cell (RBC) Count 5.21 mill/uL (4.70-6.10); White Blood Cell (WBC) Count 10.6 thou/uL (4.8-10.8)
[2018-04-03 23:54] LABS: ALT (SGPT) 18 U/L (8-55); AST (SGOT) 19 U/L (5-34); Albumin 4.5 g/dL (3.5-5.0); Alkaline Phosphatase 64 U/L (40-150); Anion Gap 14 mmol/L (10-20); BUN (Urea Nitrogen) 21 mg/dL (8.4-25.7); Bilirubin, Total 1.3 mg/dL (0.2-1.2); Calc. Creatinine Clearance 0 mL/min (70-130); Carbon Dioxide 24 mmol/L (22-29); Chloride 103 mmol/L (98-107); Estimated GFR-MDRD 34; Globulin 3.2 g/dL (2.4-3.5); Glucose 103 mg/dL (70-105); Potassium 3.6 mmol/L (3.5-5.1); Protein, Total 7.7 g/dL (6.0-8.3); Sodium 137 mmol/L (136-145)
[2018-04-04] MEDS ORDERED: SUGAMMADEX SODIUM 500 MG/5 ML VIAL ONE (02:41)
[2018-04-04] MEDS ORDERED: metroNIDAZOLE 500 MG/100 ML BAG ONE (02:41)
[2018-04-04] MEDS ORDERED: Fentanyl 100 MCG/2 ML VIAL SLOW IVP PRN (03:36)
[2018-04-04] MEDS ORDERED: Sodium Chloride 0.45% 1,000 ML IV SCH (03:45)
[2018-04-04 06:06] LABS: ALT (SGPT) 16 U/L (8-55); AST (SGOT) 17 U/L (5-34); Albumin 3.6 g/dL (3.5-5.0); Alkaline Phosphatase 58 U/L (40-150); Anion Gap 10 mmol/L (10-20); BUN (Urea Nitrogen) 20 mg/dL (8.4-25.7); Bilirubin, Total 0.8 mg/dL (0.2-1.2); Calc. Creatinine Clearance 0 mL/min (70-130); Calcium 8.5 mg/dL (7.8-10.44); Carbon Dioxide 21 mmol/L (22-29); Chloride 108 mmol/L (98-107); Estimated GFR-MDRD 48; Globulin 2.7 g/dL (2.4-3.5); Glucose 111 mg/dL (70-105); Potassium 3.4 mmol/L (3.5-5.1); Protein, Total 6.3 g/dL (6.0-8.3); Sodium 136 mmol/L (136-145)
--- NOTE | 2018-04-04 07:37 | CT ---
ABDOMEN AND PELVIS CT WITH CONTRAST: Date: 04/04/18 INDICATION: Abdominal pain. COMPARISON: CT chest, abdomen, and pelvis dated 04/23/17. FINDINGS: There is no acute abnormality of the solid abdominal organs. Scattered vascular disease is present. T here is fluid content of the colon, which can be seen in the setting of enterocolitis. Correlate clin ically. No free air, portal vein gas, or ascites. Imaged osseous structures are intact. IMPRESSION: 1. Fluid content of the colon. Correlate for evidence of enterocolitis. 2. No free air. 3. Bowel is limited in assessment without presence of enteric contrast. POS: [facility]
--- NOTE | 2018-04-04 07:48 | RAD ---
CHEST 1 VIEW: Date: 04/04/18 HISTORY: Cough. COMPARISON: Radiograph dated 10/03/17. FINDINGS: Lungs are clear. No pneumothorax or effusion. Cardiac silhouette and mediastinal contours within norm al limits. IMPRESSION: No acute intrathoracic abnormality. POS: [facility]
--- NOTE | 2018-04-04 10:08 | PDOC.EVN ---
Event Note - Event Note Event Note: [facility] #[id number] DC DI[facility]ATED #[id number]
[2018-04-04 11:13] VITALS: BP 124/89; TEMP 97.1
[2018-04-04] MEDS ORDERED: ISOVUE-370 76%-LOCM 1 ML ONE (17:06)
--- NOTE | 2018-04-05 03:05 | DIS ---
DATE OF ADMISSION: 04/04/2018 DATE OF DISCHARGE: 04/04/2018 HOSPITAL COURSE: A 53-year-old male who presented to the ER on the evening of April 03, 2018, complaining of syncope as well as having passed out. Patient stated that he has had a weight loss of 20 pounds intentional. States that he has still been taking the same blood pressure medications. The patient was found to have orthostatic syncopal episodes. Patient's blood pressure medications were discontinued in the ER and patient's symptoms had considerably improved. Patient was advised to take blood pressures every morning and if his systolic blood pressure is less than 140, he is advised not to take any of his blood pressure medications. Patient has kidney injury which was found to have a creatinine of 2.03 at point of the time of admission, was found to be 1.53 upon the time of discharge. Patient denied any symptoms or complaints upon the time of discharge. Patient is to follow up with PCP in one week for further management and care. Case and plan discussed with the patient at length. He understood and agreed with this plan. Colitis was also found on the CT of his abdomen, so he was given a prescription for Levaquin to be taken for five days. DISPOSITION: Home. FOLLOWUP: Follow up with PCP in one week. MEDICATIONS: See MAR. Prescription given for Levaquin. DIET: Low-fat, low-calorie, high-fiber diet. PROGNOSIS: Good. CONDITION: Stable. Once again, case and plan discussed with the patient at length. He understood and agreed with this plan. Job ID: [id number]
--- NOTE | 2018-04-05 23:46 | HP ---
CHIEF COMPLAINT: Syncope. ADMITTING HISTORY OF PRESENT ILLNESS: This is a 53-year-old male, who presents to the hospital due to a presyncopal/syncopal episode. The patient states that he has been aggressively pursuing weight loss and has lost about 20 to 30 pounds. States that he feels that his blood pressure regimen might not have been adjusted and that is why he got dizzy and passed out. The patient otherwise denies any nausea, vomiting, diarrhea, constipation, chest pain, fevers, chills, or shortness of breath. Does not have any other associated complaints or issues. Does admit past medical history to psychiatric problems for which he takes certain psychotropic medications, which he is unable to recall. Also admits to past medical history of hypertension and hypothyroidism. The patient is seen and examined in the ER. No family at bedside. All questions answered. REVIEW OF SYSTEMS: All systems reviewed, pertinent positives in HPI, otherwise negative. ALLERGIES: NO KNOWN DRUG ALLERGIES. SOCIAL HISTORY: Admits to some smoking in the past, however, now quit. Social drinking. FAMILY HISTORY: Noncontributory. HOME MEDICATIONS: See MAR. PHYSICAL EXAMINATION: VITAL SIGNS: Blood pressure 114/71, respiratory rate of 18, temperature of 98, O2 saturation 98% on room air. GENERAL: The patient is lying in bed comfortably with no complaints. HEENT: Pupils are equal, round, reactive to light and accommodation. Extraocular muscles are intact. Oral cavity moist and pink. NECK: Supple. Nontender. Mobile thyroid appreciated. CARDIOVASCULAR: Regular rate and rhythm, S1 and S2. No murmurs, rubs, or gallops appreciated. PULMONARY: Clear to auscultation bilaterally. No increase in AP diameter. No respiratory distress. ABDOMEN: Positive bowel sounds. Soft, nontender, nondistended. EXTREMITIES: 2+ peripheral pulses noted. No cyanosis, clubbing, or edema noted. NEUROLOGIC: Cranial nerves 2 through 12 intact. No loss of motor or sensory function. LABORATORY DATA: CBC, normal. BMP within normal limits. Creatinine slightly elevated at 2.03. Repeat creatinine one day later was 1.53. ASSESSMENT: 1. Syncope. 2. Hypertension. 3. Hyperlipidemia. 4. Hypothyroidism. 5. History of psychotropic diseases. PLAN: At this point in time, we will admit the patient hospital floor through Medicine Service to rule out any causes of syncope. We will check D-dimer as well as repeat labs in the morning. The patient likely had orthostatic syncope due to taking his regular dose of blood pressure medication after having had a weight loss, he has not had his blood pressure medications adjusted. The patient otherwise was advised to take blood pressures in the morning. States that he has a cuff at home, was to take the blood pressure every morning and if blood pressure was below 140, the patient was advised not to take any blood pressure medications, but to take the rest of his cardiac medications. The patient otherwise was stable. We will admit the patient and follow up with lab data and determine further plan of care based on results. Case and plan discussed with the patient at length. He understood and agreed to this plan. Job ID: [id number]
== END 2018-04-04 12:08 | disposition home or self-care (01) | DRG 312 ==
LOC: ERS 23:04 → ERHOLD 04-04 02:50
PROVIDERS: ADMIT Internal Medicine; ATTEND Internal Medicine
DX: R55 Syncope and collapse (principal); I10 Essential (primary) hypertension; E78.5 Hyperlipidemia, unspecified; E03.9 Hypothyroidism, unspecified
CPT/HCPCS: 36415; 71045; 74177; 80053; 83605; 83690; 84484; 85025; 85379; 93005; 96361; 96365; 96367; 96375; J0131; J0744

== ENCOUNTER 2018-08-24 06:07 | Emergency (ER) | payer OTHER ==
[2018-08-24] MEDS ORDERED: Fluorescein Opthalmic Strip ONE (06:22)
[2018-08-24] MEDS ORDERED: Proparacaine 0.5% Opth 15 ML BOT ONE (06:22)
[2018-08-24] MEDS ORDERED: HYDROcodone/Acetaminophen 5/325 mg Tablet ONE (06:45)
== END 2018-08-24 06:44 | disposition home or self-care (01) ==
LOC: ERS 06:07
DX: H10.9 Unspecified conjunctivitis (principal); I25.10 Atherosclerotic heart disease of native coronary artery without angina pectoris; I25.2 Old myocardial infarction; E03.9 Hypothyroidism, unspecified; I10 Essential (primary) hypertension; F43.10 Post-traumatic stress disorder, unspecified; Z87.891 Personal history of nicotine dependence; Z79.899 Other long term (current) drug therapy; Z79.82 Long term (current) use of aspirin
CPT/HCPCS: 99283

== ENCOUNTER → 2018-12-24 | Emergency (ER) | payer OTHER ==
[~2018-12-24] MED LIST changes: -ISOVUE-370 76%-LOCM 1 ML ONE; +Lorazepam 1 MG TAB ONE
[2018-12-24 22:56] LABS: #Basophils 0.1 thou/uL (0.0-0.2); #Eosinphils 0.2 thou/uL (0.0-0.7); #Lymphocytes 2.8 thou/uL (1.20-3.40); #Monocytes 0.7 thou/uL (0.11-0.59); #Neutrophils 4.5 thou/uL (1.40-6.50); %Basophils 1.1 % (0.0-1.0); %Eosinophils 2.3 % (0.0-10.0); %Lymphocytes 34.2 % (21.0-51.0); %Monocytes 8.3 % (0.0-10.0); %Neutrophils 54.1 % (42.0-75.0); Hemoglobin 13.9 g/dL (14.0-18.0); Mean Corpuscular HGB CONC 35.1 g/dL (32.0-36.0); Mean Corpuscular Hemoglobin 32.7 pg (27.0-31.0); Mean Corpuscular Volume 93.2 fL (78.0-98.0); Mean Platelet Volume 6.2 fL (7.4-10.4); Platelet Count 383 thou/uL (130-400); RBC Distribution Width 11.9 % (11.5-14.5); Red Blood Cell (RBC) Count 4.27 mill/uL (4.70-6.10); White Blood Cell (WBC) Count 8.3 thou/uL (4.8-10.8)
[2018-12-24 23:21] LABS: ALT (SGPT) 15 U/L (8-55); AST (SGOT) 16 U/L (5-34); Acetaminophen Less than 6.0 mcg/mL (10.0-30.0); Albumin 4.4 g/dL (3.5-5.0); Alcohol Less than 10 mg/dL (Less than 10); Alkaline Phosphatase 60 U/L (40-110); Anion Gap 13 mmol/L (10-20); BUN (Urea Nitrogen) 17 mg/dL (8.4-25.7); Bilirubin, Total 1.1 mg/dL (0.2-1.2); Calc. Creatinine Clearance 0 mL/min (70-130); Calcium 9.3 mg/dL (7.8-10.44); Carbon Dioxide 23 mmol/L (22-29); Chloride 104 mmol/L (98-107); Estimated GFR-MDRD 47; Globulin 2.5 g/dL (2.4-3.5); Glucose 83 mg/dL (70-105); Potassium 3.5 mmol/L (3.5-5.1); Protein, Total 6.9 g/dL (6.0-8.3); Salicylate Less than 8.0 mg/dL (15.0-30.0); Sodium 136 mmol/L (136-145)
[2018-12-25 00:40] LABS: Bacteria/HPF None Seen HPF (None Seen); Bilirubin Negative (Negative); Blood, Urine Negative (Negative); Clarity Clear (Clear); Glucose, Urine (Dipstick) Normal (Negative); Leukocyte Negative Leu/uL (Negative); Nitrite Negative (Negative); Protein, Urine (Dipstick) 30 mg/dL (Neg-Trace); RBC/HPF 0-3 HPF (0-3); Squamous Epithelial None Seen HPF (0-3)
[2018-12-25 00:42] LABS: Amphetamine Detected (NotDetected); Barbiturates Screen Not Detected (NotDetected); Benzodiazepine Screen Not Detected (NotDetected); Cocaine Metabolite Screen Not Detected (NotDetected); Medtox Control Line Valid? VALID (VALID); Medtox Reader # READER 4; Methadone Not Detected (NotDetected); Methamphetamine Not Detected (NotDetected); Opiate Screen Not Detected (NotDetected); Oxycodone Screen Not Detected (NotDetected); Phencyclidine (PCP) Not Detected (NotDetected); THC/Cannabinoid Screen Detected (NotDetected); Tricyclic Screen Not Detected (NotDetected)
[2018-12-25 00:49] LABS: Sperm/HPF 1+ HPF (None Seen)
== END ==
LOC: ERS 22:14
DX: R45.851 Suicidal ideations (principal); N17.9 Acute kidney failure, unspecified; R42 Dizziness and giddiness; R79.89 Other specified abnormal findings of blood chemistry; I25.10 Atherosclerotic heart disease of native coronary artery without angina pectoris; I25.2 Old myocardial infarction; I10 Essential (primary) hypertension; E03.9 Hypothyroidism, unspecified; F43.10 Post-traumatic stress disorder, unspecified; F17.210 Nicotine dependence, cigarettes, uncomplicated; Z79.899 Other long term (current) drug therapy; Z95.5 Presence of coronary angioplasty implant and graft
CPT/HCPCS: 36415; 51701; 80053; 80306; 80307; 81003; 81015; 82550; 84439; 84443; 85025; 93005

== ENCOUNTER 2019-01-16 04:50 | Observation (INO) | payer OTHER ==
[2019-01-16] MEDS ORDERED: Ketorolac Tromethamine 30 MG/ML VIAL ONE ×2 (05:03→11:32)
[2019-01-16] MEDS ORDERED: Ondansetron PF 4 MG/2 ML Vial ONE (05:03)
[2019-01-16 05:36] LABS: #Basophils 0.1 thou/uL (0.0-0.2); #Eosinphils 0.4 thou/uL (0.0-0.7); #Lymphocytes 2.6 thou/uL (1.20-3.40); #Monocytes 0.8 thou/uL (0.11-0.59); #Neutrophils 6.3 thou/uL (1.40-6.50); %Eosinophils 4.3 % (0.0-10.0); %Lymphocytes 25.1 % (21.0-51.0); %Monocytes 7.8 % (0.0-10.0); %Neutrophils 61.8 % (42.0-75.0); Hemoglobin 14.4 g/dL (14.0-18.0); Mean Corpuscular HGB CONC 34.4 g/dL (32.0-36.0); Mean Corpuscular Hemoglobin 32.2 pg (27.0-31.0); Mean Corpuscular Volume 93.5 fL (78.0-98.0); Mean Platelet Volume 7.4 fL (7.4-10.4); Platelet Count 307 thou/uL (130-400); RBC Distribution Width 11.9 % (11.5-14.5); Red Blood Cell (RBC) Count 4.49 mill/uL (4.70-6.10); White Blood Cell (WBC) Count 10.2 thou/uL (4.8-10.8)
[2019-01-16 05:56] LABS: ALT (SGPT) 14 U/L (8-55); AST (SGOT) 14 U/L (5-34); Albumin 4.4 g/dL (3.5-5.0); Alkaline Phosphatase 64 U/L (40-110); Anion Gap 12 mmol/L (10-20); BUN (Urea Nitrogen) 18 mg/dL (8.4-25.7); Bilirubin, Total 0.3 mg/dL (0.2-1.2); Calc. Creatinine Clearance 0 mL/min (70-130); Carbon Dioxide 21 mmol/L (22-29); Chloride 105 mmol/L (98-107); Estimated GFR-MDRD 60; Globulin 2.9 g/dL (2.4-3.5); Glucose 97 mg/dL (70-105); Lipase 39 U/L (8-78); Potassium 4.1 mmol/L (3.5-5.1); Protein, Total 7.3 g/dL (6.0-8.3); Sodium 134 mmol/L (136-145)
[2019-01-16] MEDS ORDERED: Morphine 4 MG/ML VIAL ONE (06:11)
--- NOTE | 2019-01-16 08:35 | CT ---
CT ABDOMEN WITH CONTRAST CT PELVIS WITH CONTRAST: DATE: 01/16/2019 HISTORY: 53-year-old male with right upper quadrant pain and suprapubic pain. TECHNIQUE: IV injection of iodinated contrast media: Administered Oral contrast media:Not administered FINDINGS: Liver: No focal solid mass. Spleen: No splenomegaly.. Pancreas: No mass or surrounding fat stranding.. Adrenals: No mass.. Kidneys: No hydronephrosis or enhancement abnormalities.. Ureters: No dilation. Bladder: Normal mural thickness. Distended.. Abdominal aorta: No aneurysm. Small bowel: No dilation. Colon: No adjacent fat stranding. Appendix: Surgically absent. Free air: None. Free fluid: None. Gallbladder: No pericholecystic fluid or edema. IMPRESSION: 1. No major pathology identified.. 2. Distended urinary bladder. 3. Status post appendectomy.
--- NOTE | 2019-01-16 08:39 | ULT ---
PRELIMINARY REPORT/[facility]/EMERGENCY AFTER HOURS PROCEDURE: PROCEDURE INFORMATION: Exam: US Abdomen Limited, Right Upper Quadrant Exam date and time: 01/16/2019 5:29 AM Clinical history: 53 years old, male; Other: Ruq pain TECHNIQUE: Imaging protocol: Real-time ultrasound of the abdomen with image documentation. Examination was focused on the right upper quadrant. COMPARISON: No relevant prior studies available. FINDINGS: Liver: No evidence of a liver mass. Gallbladder: No gallstones, wall thickening or pericholecystic fluid. Positive sonographic Yi's sign reported. Common bile duct: The common bile duct measures 0.46 cm. Pancreas: Pancreas not well-visualized secondary to overlying bowel gas. No evidence of a pancreatic mass on images provided. Right kidney: Normal appearance of the right kidney with normal cortical echogenicity and without hydronephrosis or mass. The right kidney measures 8.8 x 4.6 x 5.1 cm. IMPRESSION: Sonographic Yi sign is reported as positive; however there is a normal appearance of the gallbladder without evidence of acute cholecystitis. No cholelithiasis. Thank you for allowing us to participate in the care of your patient. Dictated and Authenticated by: Cynthia Bernal MD 01/16/2019 6:56 AM Central Time ([place] & [place]) FINAL REPORT EMERGENCY AFTER HOURS STUDY ULTRASOUND ABDOMEN LIMITED: (RIGHT UPPER QUADRANT) DATE: 01/16/2019. HISTORY: 53-year-old male with right upper quadrant abdominal pain. FINDINGS: Gallbladder: Normal wall thickness. No gallstones or sludge identified. No pericholecystic fluid. Pos itive Yi's sign reported by behavioral health clinician. No excessive distention. Liver: Normal parenchymal echogenicity. Right kidney: No hydronephrosis. Pancreas: Visualized, with no gross sonographic abnormality identified (although ultrasound is relati vely insensitive for the detection of pancreatic pathology compared to CT and MRI.). Common duct caliber: 5 mm. No major disagreement with preliminary report by [facility]. IMPRESSION: 1) Subjective positive sonographic Yi's sign reported by behavioral health clinician. 2) However, ultrasound images are normal. Transcribed Date/Time: 01/16/2019 8:43 AM
[2019-01-16] MEDS ORDERED: Morphine 2 MG/ML SYRINGE SLOW IVP SCH (09:45)
[2019-01-16] MEDS ORDERED: Morphine 2 MG/ML SYRINGE ONE (10:11)
[2019-01-16] MEDS ORDERED: ISOVUE-370 76%-LOCM 1 ML ONE (12:34)
[2019-01-16] MEDS ORDERED: Acetaminophen 325 MG TAB PO PRN (14:21)
[2019-01-16] MEDS ORDERED: Ondansetron PF 4 MG/2 ML Vial IVP PRN (14:21)
[2019-01-16] MEDS ORDERED: Ondansetron ODT 4 MG TAB PO PRN (14:21)
[2019-01-16] MEDS ORDERED: hydrALAZINE 20 MG/ML VIAL SLOW IVP PRN (14:33)
--- NOTE | 2019-01-16 14:37 | NM ---
NUCLEAR MEDICINE HEPATOBILIARY SCAN: DATE: 01/16/2019 HISTORY: 53-year-old male with right upper quadrant abdominal pain. TECHNIQUE: Technetium 99m-mebrofenin dose: 4.9 mCi. Kinevac (CCK analog) dose: 2 mcg. Tc 99- mebrofenin injected IV. Dynamic anterior scintigraphy of abdomen for one hour. Kinevac injecte d. Additional dynamic anterior scintigraphy of abdomen. Counts obtained over the gallbladder. Time-activity curve generated. FINDINGS: There is normal uptake and washout of radiopharmaceutical agent at the liver. The gallbladder fills n ormally. Bowel activity is visualized. The gallbladder ejection fraction is normal: 92 % IMPRESSION: Normal.
--- NOTE | 2019-01-16 15:06 | HP ---
PRIMARY CARE PHYSICIAN: [facility]. CHIEF COMPLAINT: Right upper quadrant abdominal pain and nausea. HISTORY OF PRESENT ILLNESS: Mr. Ritter is a 53-year-old man with a past medical history of hypertension, hyperlipidemia, hypothyroidism, coronary artery disease with a previous CT, treated with stents, hepatitis C, that has been treated, and chronic back pain, who presented to the ED late last night for worsening right upper quadrant pain that started around 9:00 p.m. last night. He states that the pain started in his right upper abdomen and had caused nausea without vomiting. He had felt that someone was poking him in his side and "squeezing his insides." He had denied any fever, chills, any headache, blurred vision, or dizziness, any chest pain, palpitations, shortness of breath, or any diarrhea. He also denied any recent travel. His troponin was found to be negative. His EKG is normal. All other lab work was essentially unremarkable. He underwent an abdominal ultrasound, which showed a positive sonographic Yi sign, otherwise normal ultrasound was noted. He also underwent a CT abdomen and pelvis, which showed no major pathology; however, a distended bladder and status post appendectomy was noted. The patient was able to void after the CT scan was done and was noted to void 700 mL. He states that the pain slightly improved, had gotten a dose of morphine, Toradol, and Zofran in the ED with little symptom relief, a HIDA scan was ordered and currently pending at this time. REVIEW OF SYSTEMS: All other systems were reviewed and found to be negative unless mentioned in HPI. PAST MEDICAL HISTORY: Hypertension, hyperlipidemia, hypothyroidism, coronary artery disease with previous CT, and hepatitis C. PAST SURGICAL HISTORY: Appendectomy, thyroidectomy, cardiac catheterization with stents. PSYCHIATRIC HISTORY: Includes PTSD, anxiety, and depression. He has a previous history of suicidal ideation; however, not actively suicidal at this time. SOCIAL HISTORY: The patient reports 2 to 3 beers 3 times a week and is a current tobacco smoker of about a half pack per day; however, denies any illicit drug use. KNOWN ALLERGIES: No known drug allergies. CURRENT HOME MEDICATIONS: 1. Aspirin 81 mg daily. 2. Atorvastatin 40 mg daily. 3. Clopidogrel 75 mg daily. 4. Gabapentin 800 mg daily. 5. Levothyroxine 200 mcg daily. 6. Lisinopril 5 mg daily. 7. Metoprolol 12.5 mg daily. 8. Nitroglycerin 0.4 mg every 5 minutes as needed for chest pain. 9. Ranexa 500 mg b.i.d. 10. Sertraline 200 mg daily. 11. Trazodone 100 mg at bedtime p.r.n. insomnia. PHYSICAL EXAMINATION: VITAL SIGNS: Blood pressure 153/87, pulse 55, respirations 19, temperature 98.9, O2 saturation 95% on room air. GENERAL: The patient is awake, alert, and oriented x3. He is currently lying comfortably in bed and in no acute distress. HEENT: Atraumatic, normocephalic. Pupils are round and reactive to light. Extraocular muscles intact. Moist mucous membranes noted. NECK: Soft and supple. Trachea midline. CARDIOVASCULAR: Positive S1 and S2. Regular rate and rhythm. No murmur auscultated. RESPIRATORY: Clear to auscultation bilaterally. No wheezes, rales, or rhonchi. ABDOMEN: Soft. Tenderness noted in the right upper quadrant. Positive Yi sign noted. No rebound. Bowel sounds present. EXTREMITIES: Moves all extremities equal. Pedal and radial pulses 2+ bilaterally. No edema noted. NEUROLOGIC: Cranial nerves 2 through 12 grossly intact. No focal deficits noted. Speech intact and normal. Gait not assessed. SKIN: Warm, dry and intact. No rashes. No ulceration noted. PSYCHIATRIC: Good mood and affect. LABORATORY DATA: WBC 10.2, RBC 4.49, hemoglobin 14.4, hematocrit 42.0, platelet 307. Sodium 134, potassium 4.1, anion gap 12, BUN 18, creatinine 1.26, estimated GFR 60, glucose 97. Troponin less than 0.010. Lipase 39. DIAGNOSTIC IMAGING: Ultrasound of gallbladder right upper quadrant showed a positive sonographic Yi sign, otherwise unremarkable ultrasound. CT abdomen and pelvis showed no major pathology identified; however, distended urinary bladder, status post appendectomy noted. ASSESSMENT AND PLAN: 1. Right upper quadrant pain with nausea. So far, the patient's workup unremarkable at this time. We will order a HIDA scan and this is pending at this time. He will also be treated symptomatically and pending his HIDA scan results, possible consult to General Surgery in the near future for further evaluation. 2. Hypertension. 3. Hyperlipidemia. 4. Hypothyroidism. 5. Coronary artery disease, currently stable at this time. The patient's troponin is found to be negative so far. He will be restarted on his home regimen when he is able to take on oral intake. 6. Nausea without vomiting. At this time, we will make the patient n.p.o. until HIDA results return. 7. History of post-traumatic stress disorder and history of suicidal ideation, currently, the patient denies any suicidal ideation and has no active plan. 8. Deep venous thrombosis and gastrointestinal prophylaxis. 9. Code status: Full code. DISPOSITION: Pending further workup of clinical findings. Job ID: [id number]
[2019-01-16 15:23] LABS: Bilirubin Negative (Negative); Blood, Urine Negative (Negative); Clarity Clear (Clear); Glucose, Urine (Dipstick) Normal (Negative); Leukocyte Negative Leu/uL (Negative); Nitrite Negative (Negative); Protein, Urine (Dipstick) Negative (Neg-Trace); Urobilinogen Normal mg/dL (Less than 2)
[2019-01-16] MEDS: Sodium Chloride 0.9% 1,000 ML IV SCH ×2 (15:31→20:12)
[2019-01-16 15:41] VITALS: BMI 32.3
[2019-01-16] MEDS: Ketorolac Tromethamine 30 MG/ML VIAL IVP PRN ×2 (16:41→22:45)
[2019-01-16] MEDS: Pantoprazole 40 MG VIAL IVP SCH (19:57)
[2019-01-16] MEDS: Famotidine 20 MG TAB PO SCH (19:57)
[2019-01-17] MEDS: Sodium Chloride 0.9% 1,000 ML IV SCH ×2 (03:33→15:08)
[2019-01-17] MEDS: Ketorolac Tromethamine 30 MG/ML VIAL IVP PRN ×4 (05:30→23:08)
[2019-01-17 05:51] LABS: #Basophils 0.1 thou/uL (0.0-0.2); #Eosinphils 0.4 thou/uL (0.0-0.7); #Lymphocytes 2.5 thou/uL (1.20-3.40); #Monocytes 0.7 thou/uL (0.11-0.59); #Neutrophils 5.4 thou/uL (1.40-6.50); %Basophils 0.9 % (0.0-1.0); %Eosinophils 4.9 % (0.0-10.0); %Lymphocytes 27.3 % (21.0-51.0); %Monocytes 7.3 % (0.0-10.0); %Neutrophils 59.6 % (42.0-75.0); Hemoglobin 13.5 g/dL (14.0-18.0); Mean Corpuscular HGB CONC 34.5 g/dL (32.0-36.0); Mean Corpuscular Volume 95.4 fL (78.0-98.0); Mean Platelet Volume 7.1 fL (7.4-10.4); Platelet Count 265 thou/uL (130-400); RBC Distribution Width 12.1 % (11.5-14.5); White Blood Cell (WBC) Count 9.1 thou/uL (4.8-10.8)
[2019-01-17 06:10] LABS: Anion Gap 10 mmol/L (10-20); BUN (Urea Nitrogen) 14 mg/dL (8.4-25.7); Calc. Creatinine Clearance 99 mL/min (70-130); Calcium 7.8 mg/dL (7.8-10.44); Carbon Dioxide 24 mmol/L (22-29); Chloride 106 mmol/L (98-107); Estimated GFR-MDRD 61; Glucose 85 mg/dL (70-105); Potassium 3.9 mmol/L (3.5-5.1); Sodium 136 mmol/L (136-145)
[2019-01-17] MEDS: Pantoprazole 40 MG VIAL IVP SCH ×2 (08:16→20:14)
[2019-01-17] MEDS: Enoxaparin Sodium 40 MG/0.4 ML SYRINGE SC SCH (08:16)
[2019-01-17] MEDS: Famotidine 20 MG TAB PO SCH ×2 (08:16→20:14)
[2019-01-17] MEDS ORDERED: Nitroglycerin 0.4 MG TAB (25 Tab Bottle) SL PRN (14:42)
[2019-01-17] MEDS ORDERED: Clopidogrel Bisulfate 75 MG TAB PO SCH (14:45)
[2019-01-17] MEDS ORDERED: traZODone HCl 50 MG TAB PO PRN (15:00)
--- NOTE | 2019-01-17 15:18 | PDOC.HOSPP ---
- Subjective Subjective: Feeling very anxious. Says he continues to have some. Timing his pain meds to try to sleep for a couple of hours with it. Apparently has some PTSD and says he takes xanax "like eating [employer]". Says he hurt his back in the [place] and is not sure how to tell current symptoms from that. He does report the RUQ pain gets worse with eating. - Objective Vital Signs & Weight: Vital Signs (12 hours) Temp Pulse Resp BP Pulse Ox 01/17/19 12:04 60 01/17/19 11:48 97.6 F 60 16 184/101 H 98 01/17/19 07:47 97.5 F L 60 14 155/77 H 98 01/17/19 03:33 97.6 F 58 L 17 126/62 98 Weight Weight 225 lb I&O: 01/16/19 01/17/19 01/18/19 06:59 06:59 06:59 Intake Total 2370 Balance 2370 Result Diagrams: 01/17/19 05:23 01/17/19 05:23 Hospitalist ROS - Medication Medications: Active Medications Generic Name Dose Route Start Last Admin Trade Name Freq PRN Reason Stop Dose Admin Acetaminophen 650 mg 01/16/19 14:21 01/16/19 19:56 Tylenol PO 650 mg Q4H PRN Administration Headache/Fever/Mild Pain (1-3) Clopidogrel Bisulfate 75 mg 01/17/19 14:45 01/17/19 14:59 Plavix PO 01/17/19 16:45 75 mg NOW RIANA Administration Enoxaparin Sodium 40 mg 01/17/19 09:00 01/17/19 08:16 Lovenox SC 40 mg 0900 RIANA Administration Famotidine 20 mg 01/16/19 21:00 01/17/19 08:16 Pepcid PO 20 mg BID RIANA Administration Hydralazine HCl 10 mg 01/16/19 14:33 01/17/19 12:04 Apresoline SLOW IVP 10 mg Q4H PRN Administration Hypertension Sodium Chloride 1,000 mls @ 75 mls/hr 01/16/19 08:15 01/17/19 15:08 Normal Saline 0.9% IV Not Given .[id number] RIANA Ketorolac Tromethamine 30 mg 01/16/19 11:31 01/17/19 11:08 Toradol IVP 01/21/19 11:32 30 mg Q6H PRN Administration Pain Ondansetron HCl 4 mg 01/16/19 14:21 01/16/19 15:32 Zofran IVP 4 mg Q6H PRN Administration Nausea/Vomiting Pantoprazole Sodium 40 mg 01/16/19 21:00 01/17/19 08:16 Protonix IVP 40 mg Q12HR RIANA Administration Sertraline HCl 200 mg 01/17/19 14:45 01/17/19 14:59 Zoloft PO 01/17/19 16:45 200 mg NOW RIANA Administration - Exam General Appearance: NAD, awake alert General - other findings: Anxious. Heart: RRR, no murmur, no gallops, no rubs, normal peripheral pulses Respiratory: CTAB, no wheezes, no rales, no ronchi, normal chest expansion, no tachypnea, normal percussion Gastrointestinal: soft, non-distended, normal bowel sounds, no palpable masses, no hepatomegaly, no splenomegaly, no bruit, tender to palpation (RUQ.) Extremities: no cyanosis, no clubbing, no edema Psychiatric: normal affect, normal behavior, A&O x 3 Hosp A/P (1) RUQ abdominal pain Code(s): R10.11 - RIGHT UPPER QUADRANT PAIN Status: Acute (2) Tobacco abuse Code(s): Z72.0 - TOBACCO USE Status: Acute (3) Chronic low back pain Code(s): M54.5 - LOW BACK PAIN; G89.29 - OTHER CHRONIC PAIN Status: Chronic Qualifiers: Back pain laterality: bilateral (4) GERD (gastroesophageal reflux disease) Code(s): K21.9 - GASTRO-ESOPHAGEAL REFLUX DISEASE WITHOUT ESOPHAGITIS Status: Chronic (5) Hepatitis C virus Code(s): B19.20 - UNSPECIFIED VIRAL HEPATITIS C WITHOUT HEPATIC COMA Status: Chronic Qualifiers: Viral hepatitis chronicity: carrier Qualified Code(s): B18.2 - Chronic viral hepatitis C (6) Hypertension Code(s): I10 - ESSENTIAL (PRIMARY) HYPERTENSION Status: Chronic Qualifiers: Hypertension type: essential hypertension Qualified Code(s): I10 - Essential (primary) hypertension (7) Hypothyroidism Code(s): E03.9 - HYPOTHYROIDISM, UNSPECIFIED Status: Chronic (8) Post traumatic stress disorder (PTSD) Code(s): F43.10 - POST-TRAUMATIC STRESS DISORDER, UNSPECIFIED Status: Chronic - Plan He has a negative CT and US, but positive sonographic Yi's. He is still TTP in the GB area and has increased sx with eating. LFT's and bili are normal. Will ask surgery to see him. Only real options at this point are surgical intervention or discharge to manage pain and follow as OP.
[2019-01-17] MEDS: ALPRAZolam 0.25 MG TAB PO PRN ×2 (16:37→23:01)
[2019-01-17] MEDS ORDERED: Atorvastatin Calcium 40 MG TAB PO SCH (21:00)
--- NOTE | 2019-01-17 21:21 | PDOC.EVN ---
Event Note - Event Note Event Note: Discussed with Dr. Jeffrey. Recommended GI consult for endoscopy. Will make NPO after midnight.
[2019-01-17] MEDS: Morphine 2 MG/ML SYRINGE SLOW IVP PRN (23:01)
[2019-01-18] MEDS: Morphine 2 MG/ML SYRINGE SLOW IVP PRN ×2 (03:01→06:35)
[2019-01-18] MEDS: Ketorolac Tromethamine 30 MG/ML VIAL IVP PRN ×2 (05:20→16:11)
[2019-01-18] MEDS: Sodium Chloride 0.9% 1,000 ML IV SCH (05:20)
[2019-01-18] MEDS ORDERED: Levothyroxine 175 MCG TAB PO SCH (06:00)
[2019-01-18] MEDS: ALPRAZolam 0.25 MG TAB PO PRN (06:35)
[2019-01-18] MEDS: Famotidine 20 MG TAB PO SCH (08:47)
[2019-01-18] MEDS: Enoxaparin Sodium 40 MG/0.4 ML SYRINGE SC SCH (08:47)
[2019-01-18] MEDS: Pantoprazole 40 MG VIAL IVP SCH (08:48)
[2019-01-18] MEDS ORDERED: Aspirin 81 mg Enteric Coated Tablet PO SCH (09:00)
[2019-01-18] MEDS ORDERED: Gabapentin 400 MG CAP PO SCH ×2 (09:00→21:00)
[2019-01-18] MEDS ORDERED: Clopidogrel Bisulfate 75 MG TAB PO SCH (09:00)
[2019-01-18] MEDS ORDERED: Lisinopril 5 MG TAB PO SCH (09:00)
[2019-01-18] MEDS ORDERED: PROPOFOL 200 MG/20 ML VIAL ONE (14:42)
[2019-01-18] MEDS ORDERED: Lidocaine 1% PF 5 ML VIAL ONE (14:42)
[2019-01-18] MEDS ORDERED: Promethazine HCl 25 MG/ML VIAL SLOW IVP PRN (14:58)
[2019-01-18] MEDS ORDERED: Promethazine HCl 25 MG/ML VIAL IM PRN (14:58)
[2019-01-18] MEDS ORDERED: Ondansetron HCl/PF 4 MG/2 ML Vial IVP PRN (14:58)
[2019-01-18] MEDS ORDERED: Magnesium Citrate 300 ML BOT PO SCH (15:34)
[2019-01-18 16:00] VITALS: BP 152/93; TEMP 97.5
--- NOTE | 2019-01-18 16:31 | CON ---
DATE OF CONSULTATION: 01/16/2019 REASON FOR CONSULTATION: Abdominal pain, request for EGD. HISTORY OF PRESENT ILLNESS: Mr. Ritter is a 53-year-old male, who gets most of his care at the [facility]. He came to the hospital on the with right upper quadrant pain that began about the evening before about 9:00 p.m. The pain what he states at the right upper abdomen. This was some associated with nausea, but no vomiting. [place] that it was a chronic pain, very sharp, like a knife or someone was poking him and it was kind of in the side and he felt that it went up under his ribs a little bit. His cardiac evaluation was negative with troponins, EKG, abdominal ultrasound with normal findings. He had a CAT scan of abdomen and pelvis, which were normal except for distended bladder. He voided after the CAT scan reportedly and did not change his symptoms. He has been treated with some Toradol and Zofran and PPI. He had a normal HIDA scan this admission. They were going to consider empiric cholecystectomy, but I was asked to see him 1st for possible EGDs. He relates a prior history of ulcers about 15 years ago. REVIEW OF SYSTEMS: Negative for shortness of breath, dyspnea on exertion, chest pain, vomiting, melena, hematochezia, diarrhea, hematemesis, weight loss, fever, chills, or rashes. PAST MEDICAL HISTORY: 1. Hypertension. 2. Hyperlipidemia. 3. Hypothyroidism. 4. Coronary artery disease. 5. Previous ND. 6. Hepatitis C, previously treated. PAST SURGICAL HISTORY: 1. Appendectomy. 2. Thyroidectomy. 3. Cardiac catheterization. 4. Prior stents. 5. Also, he has had a previous endoscopy also at the [facility], he reports. PAST PSYCHIATRIC HISTORY: 1. PTSD. 2. Anxiety. 3. Depression. SOCIAL HISTORY: Drinks 2-3 beers 3 times a week. Smokes. ALLERGIES: NONE KNOWN. MEDICATIONS: 1. Aspirin. 2. Atorvastatin. 3. Plavix. 4. Gabapentin. 5. Lisinopril. 6. Metoprolol. 7. Nitroglycerin. 8. Ranitidine. 9. Sertraline. 10. Trazodone. He is not sure the name of his ulcer medicine. Actually when I asked if he is taking any reflux medicine, he mentioned the common PPI, he states no. Medications here; 1. Plavix. 2. Lovenox. 3. Atorvastatin. 4. Pepcid. 5. Neurontin. 6. Apresoline. 7. Toradol. 8. Synthroid. 9. Lisinopril. 10. Metoprolol. 11. Morphine p.r.n. 12. Zofran p.r.n. 13. Protonix IV q.12 40 mg. PHYSICAL EXAMINATION: VITAL SIGNS: He has been afebrile since admission, temperature 98.4, pulse 56, blood pressure 131/70. GENERAL: The patient is resting comfortably in bed. HEENT: Oropharynx without lesions. NECK: Supple. No adenopathy. LUNGS: Clear. HEART: Regular rhythm. No murmurs. ABDOMEN: Positive bowel sounds. There is no rebound or guarding. He has some point tenderness on the right lateral rectus sheath. This is worse when he is trying to strain of his abdominal wall and it is in a very small area about 2 cm in size. Palpating the right upper quadrant is normal at this time. Palpating the right flank is normal with a little bit of pain in the right lower abdomen, but the area of most tenderness is just lateral below the umbilicus in the right rectus area. Epigastrium is normal. Liver and spleen are nonpalpable. EXTREMITIES: No clubbing, cyanosis, or edema. LABORATORY DATA: White count 5.1, hemoglobin 13.5, and platelet count 265. Comprehensive metabolic profile normal. Lipase normal. Urinalysis negative. IMAGING STUDIES: CT scan images reviewed. Radiology, ultrasound report reviewed. HIDA scan report reviewed, showing ejection fraction 93%. ASSESSMENT: The patient presented with 24 hours of epigastric and right upper quadrant pain with some nausea and some symptoms, which seem to worsen with food. He has not had this in the past. He has a remote history of ulcers. He is not taking NSAIDs. He is taking an aspirin daily, now he is not taking a proton pump inhibitor at home, it seems. 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 I do not see any overt findings to suggest shingles. His gallbladder workup has been negative. I do not think that I would proceed with a cholecystectomy at this time without any right upper quadrant pain. It is reasonable to proceed with an EGD with regard to his nausea and worsening symptoms with food intake and his prior history of ulcers, aspirin use, and smoking history. Age greater than 50, no prior colonoscopies, it would be reasonable for him an outpatient CAT scan. May be some slight thickened loops of small bowel in the right abdomen on his CT as well. We will review with Radiology. Job ID: [id number]
--- NOTE | 2019-01-19 08:35 | OP ---
DATE OF PROCEDURE: 01/18/2019 PREPROCEDURE DIAGNOSES: 1. Abdominal pain, epigastric on admission, now resolved with pain more in the right abdomen. 2. Normal CAT scan, normal ultrasound, normal HIDA scan. 3. Prior history of ulcers. POSTPROCEDURE DIAGNOSIS: 3 cm sliding-type hiatal hernia with no evidence of incarceration, otherwise normal esophagogastroduodenoscopy. RECOMMENDATIONS: 1. PPI for reflux. 2. Consider trial of mag citrate for possible obstipation or constipation as evidenced on CT in the right abdomen. 3. If this is ineffective, consider asking Pain Management to do a trigger point injection in his right rectus sheath where he seems to have point tenderness. 4. At this point, I see no signs of gallbladder pathology. ANESTHESIA: TIVA. DESCRIPTION OF PROCEDURE: The patient was informed of the risk, benefits, and possible complication of endoscopy including perforation, reaction to medication, aspiration. Informed consent was obtained. The patient was brought to endoscopy suite, where he was sedated in standard fashion. Once he was comfortable, a bite block was placed inside his orifice. The endoscope was advanced through the esophagus, stomach, into the second and third portions of the duodenum and slowly removed. There was good visualization of the mucosa. There were no mass lesions or AV malformations seen in the esophagus, stomach, and duodenum to the third portion. There was no evidence of erosions or gastritis. There was a 3 cm sliding-type hiatal hernia noted in forward and retroflexed views. The scope was removed. The patient tolerated the procedure well. There were no complications. Job ID: [id number]
== END 2019-01-18 17:44 | disposition home or self-care (01) ==
LOC: ERS 04:50 → 2SW 15:29
PROVIDERS: ADMIT Internal Medicine Nephrology; ATTEND Internal Medicine Nephrology
PROC: 0DJ08ZZ Inspection of Upper Intestinal Tract, Via Natural or Artificial Opening Endoscopic (ICD-10-PCS; principal; 2019-01-18)
DX: K44.9 Diaphragmatic hernia without obstruction or gangrene (principal); K21.9 Gastro-esophageal reflux disease without esophagitis; I25.2 Old myocardial infarction; F17.210 Nicotine dependence, cigarettes, uncomplicated; I25.10 Atherosclerotic heart disease of native coronary artery without angina pectoris; G89.29 Other chronic pain; M54.5 Low back pain; F41.9 Anxiety disorder, unspecified; F32.9 Major depressive disorder, single episode, unspecified; E89.0 Postprocedural hypothyroidism; B18.2 Chronic viral hepatitis C; F43.10 Post-traumatic stress disorder, unspecified; Z79.899 Other long term (current) drug therapy; Z95.5 Presence of coronary angioplasty implant and graft; Z79.02 Long term (current) use of antithrombotics/antiplatelets; Z79.82 Long term (current) use of aspirin
CPT/HCPCS: 36415; 74177; 76705; 78227; 80048; 80053; 81003; 83690; 84484; 85025; 93005; 96361; 96372; 96374; 96375; 96376; A9537; C9113; G0378; J0360; J1650; J1885; J2001; J2270; J2405; J2704; Q9966

== ENCOUNTER 2019-05-18 22:30 | Emergency (ER) | payer OTHER ==
[2019-05-18] MEDS ORDERED: Morphine 4 MG/ML VIAL ONE (22:49)
[2019-05-18] MEDS ORDERED: Ondansetron ODT 4 MG TAB ONE (22:50)
[2019-05-18] MEDS ORDERED: Dexamethasone 10 MG/ML VIAL ONE (23:51)
== END 2019-05-18 23:50 | disposition home or self-care (01) ==
LOC: ERS 22:30
DX: M54.5 Low back pain (principal); I25.10 Atherosclerotic heart disease of native coronary artery without angina pectoris; I25.2 Old myocardial infarction; E03.9 Hypothyroidism, unspecified; I10 Essential (primary) hypertension; F43.10 Post-traumatic stress disorder, unspecified; F17.210 Nicotine dependence, cigarettes, uncomplicated
CPT/HCPCS: 96372; 99283; J1100; J2270; Q0162

== ENCOUNTER 2019-06-11 21:36 | Emergency (ER) | payer OTHER ==
[2019-06-11] MEDS ORDERED: Ketorolac Tromethamine 30 MG/ML VIAL ONE (22:41)
[2019-06-11] MEDS ORDERED: Acetaminophen 500 MG TAB ONE (22:41)
[2019-06-11] MEDS ORDERED: Morphine 4 MG/ML VIAL ONE (22:41)
--- NOTE | 2019-06-11 23:20 | RAD ---
Lumbar spine 3 views: 06/11/2019 COMPARISON: None HISTORY: Pain following lifting boxes FINDINGS: No fracture or dislocation. Lumbar pedicles appear intact. No anterolisthesis or retrolisth esis. There is a abdominal aortic atherosclerotic calcification. IMPRESSION: No acute osseous abnormality.
[2019-06-12] MEDS ORDERED: HYDROcodone/Acetaminophen 5/325 mg Tablet ONE (00:16)
== END 2019-06-12 00:43 | disposition home or self-care (01) ==
LOC: ERS 21:36
DX: M54.5 Low back pain (principal); I25.10 Atherosclerotic heart disease of native coronary artery without angina pectoris; I25.2 Old myocardial infarction; E03.9 Hypothyroidism, unspecified; I10 Essential (primary) hypertension; F43.10 Post-traumatic stress disorder, unspecified; F17.210 Nicotine dependence, cigarettes, uncomplicated; Z79.899 Other long term (current) drug therapy; Z79.82 Long term (current) use of aspirin; Z79.02 Long term (current) use of antithrombotics/antiplatelets; X50.0XXA Overexertion from strenuous movement or load, initial encounter
CPT/HCPCS: 72100; 96372; J1885; J2270

== ENCOUNTER 2019-07-14 23:03 | Emergency (ER) | payer OTHER ==
--- NOTE | 2019-07-14 23:29 | RAD ---
Left foot 3 views HISTORY: Injury. FINDINGS: Lisfranc joint alignment is anatomic. Plantar arch is maintained. Very mild scattered osteophytosis. Subtle soft tissue swelling over the lateral aspect of the foot. No acute fracture, dislocation, or radiopaque foreign bodies are apparent. IMPRESSION : Scattered mild osteoarthritic changes. No acute osseous abnormalities are demonstrated.
--- NOTE | 2019-07-14 23:30 | RAD ---
Left hip 2 views HISTORY: Injury. FINDINGS: Joint space is preserved. Femoral head contour is maintained. No acute fracture or dislocat ion. IMPRESSION : No abnormalities are demonstrated.
[2019-07-14] MEDS ORDERED: Ketorolac Tromethamine 30 MG/ML VIAL ONE ×2 (23:41)
== END 2019-07-15 00:05 | disposition home or self-care (01) ==
LOC: ERS 23:03 → MERGE 23:03 → ERS 07-15 00:05
DX: S92.515A Nondisplaced fracture of proximal phalanx of left lesser toe(s), initial encounter for closed fracture (principal); S70.02XA Contusion of left hip, initial encounter; F17.210 Nicotine dependence, cigarettes, uncomplicated; I25.2 Old myocardial infarction; I10 Essential (primary) hypertension; F43.10 Post-traumatic stress disorder, unspecified; W18.30XA Fall on same level, unspecified, initial encounter
CPT/HCPCS: 94760; 96372; J1885

== ENCOUNTER 2019-09-09 21:43 | Emergency (ER) | payer OTHER ==
[~2019-09-09 21:43] MED LIST changes: +Iopamidol 370 76% 100 ML VIAL ONE; -Lorazepam 1 MG TAB ONE
[2019-09-09] MEDS ORDERED: Morphine 4 MG/ML VIAL ONE (22:09)
[2019-09-09] MEDS ORDERED: Ondansetron PF 4 MG/2 ML Vial ONE (22:09)
[2019-09-09 22:28] LABS: #Eosinphils 0.3 thou/uL (0.0-0.7); #Lymphocytes 1.7 thou/uL (1.20-3.40); #Monocytes 0.6 thou/uL (0.11-0.59); #Neutrophils 3.7 thou/uL (1.40-6.50); %Basophils 0.5 % (0.0-1.0); %Eosinophils 4.2 % (0.0-10.0); %Lymphocytes 27.1 % (21.0-51.0); %Neutrophils 58.3 % (42.0-75.0); Hemoglobin 13.3 g/dL (14.0-18.0); Mean Corpuscular HGB CONC 32.2 g/dL (32.0-36.0); Mean Corpuscular Hemoglobin 29.6 pg (27.0-31.0); Mean Corpuscular Volume 91.7 fL (78.0-98.0); Mean Platelet Volume 7.1 fL (7.4-10.4); Platelet Count 281 thou/uL (130-400); RBC Distribution Width 11.7 % (11.5-14.5); Red Blood Cell (RBC) Count 4.48 mill/uL (4.70-6.10); White Blood Cell (WBC) Count 6.3 thou/uL (4.8-10.8)
[2019-09-09 22:50] LABS: ALT (SGPT) 35 U/L (8-55); AST (SGOT) 21 U/L (5-34); Albumin 3.9 g/dL (3.5-5.0); Alkaline Phosphatase 53 U/L (40-110); Anion Gap 11 mmol/L (10-20); BUN (Urea Nitrogen) 25 mg/dL (8.4-25.7); Bilirubin, Total 0.3 mg/dL (0.2-1.2); CK (CPK) 293 U/L (30-200); Calc. Creatinine Clearance 0 mL/min (70-130); Calcium 8.7 mg/dL (7.8-10.44); Carbon Dioxide 24 mmol/L (22-29); Chloride 108 mmol/L (98-107); Estimated GFR-MDRD 57; Globulin 2.5 g/dL (2.4-3.5); Glucose 129 mg/dL (70-105); Lipase 42 U/L (8-78); Potassium 3.8 mmol/L (3.5-5.1); Protein, Total 6.4 g/dL (6.0-8.3); Sodium 139 mmol/L (136-145)
[2019-09-10 00:05] LABS: Bilirubin Negative (Negative); Blood, Urine Negative (Negative); Clarity Clear (Clear); Glucose, Urine (Dipstick) Normal (Negative); Leukocyte Negative Leu/uL (Negative); Nitrite Negative (Negative); Protein, Urine (Dipstick) Negative (Neg-Trace); Urobilinogen Normal mg/dL (Less than 2)
--- NOTE | 2019-09-10 09:05 | CT ---
CT CHEST WITH IV CONTRAST CT ABDOMEN WITH IV CONTRAST CT PELVIS WITH IV CONTRAST CORONAL AND SAGITTAL REFORMATIONS OF THE THORACOLUMBAR SPINE: HISTORY: Left flank pain, abdominal pain, and chest pain. The patient fell in the bathtub on 09/03/2019 and was evaluated in the [facility] emergency room on 09/03/2019. The patient complains of co ntinuing left flank pain, abdominal pain, chest pain, and hematuria. COMPARISON: 09/03/2019. FINDINGS: No evidence of mediastinal hematoma or intimal flap in the aorta is seen to suggest aortic transectio n. No pleural or pericardial effusions are seen. No pneumothoraces or pulmonary contusions are note d. There are subsegmental atelectatic changes of the lung bases. The liver, spleen, pancreas, adrenal glands, and kidneys are intact. The gallbladder and urinary ilia dder also appear intact. No free air or free fluid is seen in the abdomen or pelvis. The small bowel loops are not abnormally dilated. Colonic diverticulosis is present. There is mild prostatic enlargement. Osseous structures are intact. No fracture or subluxation is seen in the thoracolumbar spine. A sma ll hiatal hernia is present. IMPRESSION: No CT evidence of acute intrathoracic or solid organ injury. Discussed over the telephone with ER physician, Dr. Kevin Angulo, at 10:50 p.m. IRVIN ESPINO POS: DANGELO
== END 2019-09-10 00:34 | disposition home or self-care (01) ==
LOC: ERS 21:43
DX: S30.1XXA Contusion of abdominal wall, initial encounter (principal); R07.9 Chest pain, unspecified; I25.2 Old myocardial infarction; E03.9 Hypothyroidism, unspecified; I10 Essential (primary) hypertension; F43.10 Post-traumatic stress disorder, unspecified; F17.210 Nicotine dependence, cigarettes, uncomplicated; I25.10 Atherosclerotic heart disease of native coronary artery without angina pectoris; Z79.82 Long term (current) use of aspirin; Z79.899 Other long term (current) drug therapy; W18.30XA Fall on same level, unspecified, initial encounter
CPT/HCPCS: 36415; 71260; 74177; 80053; 81003; 82550; 83690; 84484; 85025; 93005; 96361; 96374; 96375; J2270; J2405; Q9967

== ENCOUNTER 2020-06-25 15:15 | Observation (INO) | payer OTHER ==
[2020-06-25] MEDS ORDERED: Nitroglycerin 2% Ointment 1 INCH/1 GM Packet ONE (15:37)
[2020-06-25] MEDS ORDERED: Aspirin Chewable 81 MG TAB ONE (15:37)
[2020-06-25 15:55] LABS: #Basophils 0.1 thou/uL (0.0-0.2); #Eosinphils 0.3 thou/uL (0.0-0.7); %Basophils 0.8 % (0.0-1.0); %Eosinophils 2.7 % (0.0-10.0); %Lymphocytes 26.1 % (21.0-51.0); %Monocytes 8.6 % (0.0-10.0); %Neutrophils 61.8 % (42.0-75.0); Mean Corpuscular HGB CONC 34.3 g/dL (32.0-36.0); Mean Corpuscular Hemoglobin 31.7 pg (27.0-31.0); Mean Corpuscular Volume 92.4 fL (78.0-98.0); Mean Platelet Volume 7.3 fL (7.4-10.4); Platelet Count 338 thou/uL (130-400); RBC Distribution Width 11.7 % (11.5-14.5); Red Blood Cell (RBC) Count 4.75 mill/uL (4.70-6.10); White Blood Cell (WBC) Count 11.3 thou/uL (4.8-10.8)
[2020-06-25] MEDS ORDERED: Morphine 4 MG/ML VIAL ONE ×2 (16:16→17:37)
[2020-06-25 16:19] LABS: ALT (SGPT) 17 U/L (8-55); AST (SGOT) 15 U/L (5-34); Alkaline Phosphatase 62 U/L (40-110); Anion Gap 14 mmol/L (10-20); BUN (Urea Nitrogen) 12 mg/dL (8.4-25.7); Bilirubin, Total 0.4 mg/dL (0.2-1.2); Calc. Creatinine Clearance 0 mL/min (70-130); Carbon Dioxide 23 mmol/L (22-29); Chloride 107 mmol/L (98-107); Globulin 2.8 g/dL (2.4-3.5); Glucose 97 mg/dL (70-105); Lipase 44 U/L (8-78); Potassium 3.9 mmol/L (3.5-5.1); Protein, Total 6.8 g/dL (6.0-8.3); Sodium 140 mmol/L (136-145)
[2020-06-25] MEDS ORDERED: Ondansetron PF 4 MG/2 ML Vial ONE (16:23)
[2020-06-25] MEDS ORDERED: Albuterol 200 PUFF (6.7GM INHALER) ONE (16:32)
[2020-06-25 17:31] LABS: SARS-CoV-2 NAA Rapid Test Not Detected (NotDetected)
[2020-06-25] MEDS ORDERED: Acetaminophen 500 MG TAB ONE (17:37)
[2020-06-25] MEDS ORDERED: Nitroglycerin 0.4 MG TAB (25 Tab Bottle) SL PRN (17:59)
[2020-06-25] MEDS ORDERED: Guaifenesin DM 100-10/5 ML UDCUP PO PRN (18:02)
[2020-06-25] MEDS ORDERED: Ondansetron PF 4 MG/2 ML Vial IVP PRN (18:02)
[2020-06-25] MEDS ORDERED: Ondansetron ODT 4 MG TAB PO PRN (18:02)
[2020-06-25] MEDS ORDERED: Acetaminophen 325 MG TAB PO PRN (18:02)
[2020-06-25 19:25] LABS: Troponin I 0.019 ng/mL (< 0.028)
[2020-06-25 20:01] VITALS: BMI 33.6
[2020-06-25] MEDS: Morphine 2 MG/ML VIAL SLOW IVP PRN (20:26)
[2020-06-25] MEDS: Famotidine 20 MG TAB PO SCH (20:26)
[2020-06-25] MEDS: Nitroglycerin 2% Ointment 1 INCH/1 GM Packet TOP SCH (22:13)
[2020-06-25 22:25] LABS: Troponin I 0.015 ng/mL (< 0.028)
[2020-06-25 22:35] LABS: Bacteria/HPF None Seen HPF (None Seen); Bilirubin Negative (Negative); Blood, Urine Negative (Negative); Clarity Clear (Clear); Glucose, Urine (Dipstick) Normal (Negative); Ketone, Urine Negative (Negative); Leukocyte Negative Leu/uL (Negative); Nitrite Negative (Negative); Protein, Urine (Dipstick) Negative (Neg-Trace); RBC/HPF None Seen HPF (0-3); Specific Gravity, Urine 1.019 (1.002-1.036); Squamous Epithelial None Seen HPF (0-3); Urobilinogen Normal mg/dL (Less than 2); WBC/HPF 0-3 HPF (0-3); pH, Urine 5.5 (5.0-9.0)
[2020-06-25 22:43] LABS: Medtox Reader # READER 1
[2020-06-25 22:44] LABS: Amphetamine Not Detected (NotDetected); Barbiturates Screen Not Detected (NotDetected); Benzodiazepine Screen Not Detected (NotDetected); Cocaine Metabolite Screen Not Detected (NotDetected); Medtox Control Line Valid? VALID (VALID); Methadone Not Detected (NotDetected); Methamphetamine Not Detected (NotDetected); Opiate Screen Detected (NotDetected); Oxycodone Screen Not Detected (NotDetected); Phencyclidine (PCP) Not Detected (NotDetected); THC/Cannabinoid Screen Not Detected (NotDetected); Tricyclic Screen Not Detected (NotDetected)
[2020-06-26] MEDS: Morphine 2 MG/ML VIAL SLOW IVP PRN ×3 (01:02→16:06)
[2020-06-26] MEDS ORDERED: traZODone HCl 50 MG TAB PO PRN (01:33)
[2020-06-26 05:04] LABS: #Basophils 0.1 thou/uL (0.0-0.2); #Eosinphils 0.3 thou/uL (0.0-0.7); #Monocytes 0.8 thou/uL (0.11-0.59); #Neutrophils 4.1 thou/uL (1.40-6.50); %Basophils 0.9 % (0.0-1.0); %Lymphocytes 36.2 % (21.0-51.0); %Monocytes 9.4 % (0.0-10.0); %Neutrophils 49.5 % (42.0-75.0); Hemoglobin 13.8 g/dL (14.0-18.0); Mean Corpuscular HGB CONC 34.3 g/dL (32.0-36.0); Mean Corpuscular Volume 93.2 fL (78.0-98.0); Mean Platelet Volume 7.1 fL (7.4-10.4); Platelet Count 302 thou/uL (130-400); RBC Distribution Width 11.6 % (11.5-14.5); Red Blood Cell (RBC) Count 4.33 mill/uL (4.70-6.10); White Blood Cell (WBC) Count 8.3 thou/uL (4.8-10.8)
[2020-06-26] MEDS: Nitroglycerin 2% Ointment 1 INCH/1 GM Packet TOP SCH (05:04)
[2020-06-26 05:23] LABS: Anion Gap 10 mmol/L (10-20); BUN (Urea Nitrogen) 13 mg/dL (8.4-25.7); Calc. Creatinine Clearance 114 mL/min (70-130); Calcium 8.3 mg/dL (7.8-10.44); Carbon Dioxide 24 mmol/L (22-29); Cardiac Risk 6.7 (Less than 4.5); Chloride 109 mmol/L (98-107); Cholesterol 175 mg/dl (< 200 Desired); Glucose 99 mg/dL (70-105); HDL Cholesterol 26 mg/dL (>60 Neg Risk); LDL Cholesterol, Calculated 127 mg/dL; Sodium 139 mmol/L (136-145); Triglycerides 111 mg/dL (Less than 150)
[2020-06-26] MEDS ORDERED: Levothyroxine 175 MCG TAB PO SCH (06:00)
[2020-06-26] MEDS: Famotidine 20 MG TAB PO SCH (07:55)
[2020-06-26] MEDS ORDERED: Lisinopril 20 MG TAB PO SCH (09:00)
[2020-06-26] MEDS ORDERED: Atorvastatin Calcium 40 MG TAB PO SCH (09:00)
[2020-06-26] MEDS ORDERED: Hydrochlorothiazide 25 MG TAB PO SCH (09:00)
[2020-06-26] MEDS ORDERED: Aspirin Chewable 81 MG TAB PO SCH (09:00)
[2020-06-26] MEDS ORDERED: Iopamidol 370 76% 100 ML VIAL ONE (09:56)
[2020-06-26 16:19] VITALS: BP 134/60; TEMP 98.7
[2020-06-26] MEDS ORDERED: predniSONE 20 MG TAB PO SCH (18:00)
[2020-06-26] MEDS ORDERED: Gabapentin 400 MG CAP PO SCH (21:00)
== END 2020-06-26 18:39 | disposition home or self-care (01) ==
LOC: ERS 15:15 → 2SW 17:59
PROVIDERS: ADMIT Internal Medicine; ATTEND Internal Medicine
DX: R07.2 Precordial pain (principal); R05 Cough; I25.10 Atherosclerotic heart disease of native coronary artery without angina pectoris; I12.9 Hypertensive chronic kidney disease with stage 1 through stage 4 chronic kidney disease, or unspecified chronic kidney disease; N18.9 Chronic kidney disease, unspecified; E78.5 Hyperlipidemia, unspecified; E03.9 Hypothyroidism, unspecified; F43.10 Post-traumatic stress disorder, unspecified; B19.20 Unspecified viral hepatitis C without hepatic coma; F17.210 Nicotine dependence, cigarettes, uncomplicated; G89.29 Other chronic pain; M54.9 Dorsalgia, unspecified; K21.9 Gastro-esophageal reflux disease without esophagitis; I25.2 Old myocardial infarction; Z79.82 Long term (current) use of aspirin; Z79.899 Other long term (current) drug therapy; Z95.5 Presence of coronary angioplasty implant and graft; Z20.822 Contact with and (suspected) exposure to COVID-19
CPT/HCPCS: 0240U; 36415; 71045; 71275; 78452; 80048; 80053; 80061; 80306; 81001; 83690; 83735; 83880; 84443; 84484; 85025; 93005; 93017; 94664; 96374; 96375; 96376; A9500; G0378; J2270; J2405; J7512; Q9967